=== PATIENT | female | born 1935 | race Caucasian/White ===

== ENCOUNTER 2019-09-01 01:29 | Outpatient (CLI) | payer MEDICARE, OTHER, MEDICAID | END 2019-09-01 01:30 | disposition critical access hospital (66) | LOC: EMS 01:29 | PROVIDERS: ATTEND Surgery | DX: R06.02 Shortness of breath (principal) | CPT/HCPCS: A0425; A0427 ==

== ENCOUNTER 2019-09-01 01:48 | Inpatient (IN) | payer MEDICARE, OTHER, MEDICAID ==
--- NOTE | 2019-09-01 01:38 | ED Physician Documentation ---
History of Present Illness - Stated complaint Stated Complaint: SOA - History obtained from History obtained from: Patient (the patient is a 84 yo f recently dcd from [facility] presents via ems w sob. denies cp. received suonebs by ems and feels better. reports le edema as well. remainder of hx is unknown as patient is a poor historian.) Review of Systems Constitutional: reports: Reviewed and negative Eyes: reports: Reviewed and negative Ears: reports: Reviewed and negative Nose: reports: Reviewed and negative Throat: reports: Reviewed and negative Cardiac: reports: Palpitations, Pedal edema Respiratory: reports: Dyspnea GI: reports: Reviewed and negative : reports: Reviewed and negative Skin: reports: Reviewed and negative Musculoskeletal: reports: Reviewed and negative Neurologic: reports: Reviewed and negative Psychiatric: reports: Reviewed and negative Endocrine: reports: Reviewed and negative Immunocompromised: reports: Reviewed and negative PD PAST MEDICAL HISTORY - Present Medications Home Medications: Ambulatory Orders Medication Instructions Recorded Confirmed Aspirin Chewable [[place] 81 mg PO DAILY 09/01/19 09/01/19 Aspirin] Atorvastatin Calcium 40 mg PO DAILY 09/01/19 09/01/19 Clindamycin Phosphate 1 each TP BID 09/01/19 09/01/19 Colchicine 0.6 mg PO BID PRN 09/01/19 09/01/19 Insulin Glargine,Hum.rec.anlog 15 unit SUBQ DAILY 09/01/19 09/01/19 [Basaglar Kwikpen U-100] NIFEdipine [Nifedipine ER] 60 mg PO DAILY 09/01/19 09/01/19 allopurinoL [Allopurinol] 100 mg PO DAILY 09/01/19 09/01/19 - Allergies Allergies/Adverse Reactions: Allergies Allergy/AdvReac Type Severity Reaction Status Date / Time No Known Drug Allergies Allergy Verified 09/01/19 02:20 PD ED PE NORMAL - Vitals Vital signs reviewed: Yes - General General: Alert and oriented X 3, No acute distress, Well developed/nourished - HEENT HEENT: PERRL - Neck Neck: Supple, no meningeal sign - Cardiac Cardiac: RRR, No murmur - Respiratory Respiratory: Other (Crackles at the bases bilaterally) - Abdomen Abdomen: Normal bowel sounds, Soft, Non tender, Non distended - Derm Derm: Warm and dry - Extremities Extremities: No deformity, Other (2+ pitting edema to bilateral lower extremities) - Neuro Neuro: Alert and oriented X 3 - Psych Psych: Normal mood, Normal affect Results - Vitals Vitals: Vital Signs - 24 hr 09/01/19 09/01/19 01:50 02:11 Temperature 36.4 C L Heart Rate 76 70 Respiratory 26 H 28 H Rate Blood Pressure 176/74 H 147/74 H O2 Saturation 93 92 Oxygen O2 Source Nasal cannula Oxygen Flow Rate 2 - EKG (time done) 02:00 Rate: Other (no stemi) - Labs Labs: Laboratory Tests 09/01/19 09/01/19 09/01/19 02:00 02:00 02:00 WBC 12.6 H RBC 2.32 L Hgb 7.3 L Hct 23.8 L MCV 102.6 H MCH 31.5 H MCHC 30.7 L RDW 15.3 H Plt Count 312 MPV 10.7 Neut # (Auto) 11.2 H Lymph # (Auto) 0.8 L [place] # (Auto) 0.5 Eos # (Auto) 0.0 Baso # (Auto) 0.1 Absolute Nucleated RBC 0.00 Nucleated RBC % 0.0 PT 19.4 H INR 1.8 H APTT 75.1 H Sodium 138 Potassium 4.4 Chloride 104 Carbon Dioxide 23 Anion Gap 11.0 BUN 65 H Creatinine 2.5 H Estimated GFR (MDRD) 18 L Glucose 230 H Lactic Acid Calcium 8.9 Magnesium 2.6 Total Bilirubin 0.5 AST 21 ALT 16 Alkaline Phosphatase 103 Total Creatine Kinase 66 Troponin I High Sens B-Natriuretic Peptide Total Protein 7.5 Albumin 3.9 Globulin 3.6 Albumin/Globulin Ratio 1.1 Lipase 70 H Influenza A (Rapid) Influenza B (Rapid) 09/01/19 09/01/19 09/01/19 02:00 02:00 02:00 WBC RBC Hgb Hct MCV MCH MCHC RDW Plt Count MPV Neut # (Auto) Lymph # (Auto) [place] # (Auto) Eos # (Auto) Baso # (Auto) Absolute Nucleated RBC Nucleated RBC % PT INR APTT Sodium Potassium Chloride Carbon Dioxide Anion Gap BUN Creatinine Estimated GFR (MDRD) Glucose Lactic Acid 1.2 Calcium Magnesium Total Bilirubin AST ALT Alkaline Phosphatase Total Creatine Kinase Troponin I High Sens 116.8 H* B-Natriuretic Peptide 447 H Total Protein Albumin Globulin Albumin/Globulin Ratio Lipase Influenza A (Rapid) Influenza B (Rapid) 09/01/19 02:55 WBC RBC Hgb Hct MCV MCH MCHC RDW Plt Count MPV Neut # (Auto) Lymph # (Auto) [place] # (Auto) Eos # (Auto) Baso # (Auto) Absolute Nucleated RBC Nucleated RBC % PT INR APTT Sodium Potassium Chloride Carbon Dioxide Anion Gap BUN Creatinine Estimated GFR (MDRD) Glucose Lactic Acid Calcium Magnesium Total Bilirubin AST ALT Alkaline Phosphatase Total Creatine Kinase Troponin I High Sens B-Natriuretic Peptide Total Protein Albumin Globulin Albumin/Globulin Ratio Lipase Influenza A (Rapid) Negative Influenza B (Rapid) Negative PD MEDICAL DECISION MAKING - ED course Complexity details: reviewed results, re-evaluated patient, considered differential (pulmonary edema, pna, sars, copd, chf), d/w patient, other - Critical Care Time(min): 30 Time Includes: Direct patient care, Review records, Reassess patient, Document care, Coordinate care, Medical consult, Family consult for tx dec Data interpretation: Labs, CXR, Prior EKG Procedures included in critical care time: Peripheral IV Procedures excluded from critical care time: EKG Departure - Departure Disposition: 66 [facility] DC/Xfer Clinical Impression: Pulmonary edema Qualifiers: Chronicity: acute Qualified Code(s): J81.0 - Acute pulmonary edema Condition: Stable Discharge Date/Time: 09/01/19 03:50
[2019-09-01 02:16] LABS: BASOPHILS # (AUTO) 0.1 10^3/uL (0.0-0.1); BASOPHILS % (AUTO) 0.6 %; EOSINOPHILS % (AUTO) 0.2 %; HGB - HEMOGLOBIN 7.3 g/dL (12.0-16.0); LYMPHOCYTES # (AUTO) 0.8 10^3/uL (1.5-3.5); MEAN CORPUSCULAR HEMOGLOBIN 31.5 pg (27.0-31.0); MEAN CORPUSCULAR HGB CONC 30.7 g/dL (32.0-36.0); MEAN CORPUSCULAR VOLUME 102.6 fL (81.0-99.0); MEAN PLATELET VOLUME 10.7 fL (7.9-10.8); MONOCYTES # (AUTO) 0.5 10^3/uL (0.0-1.0); MONOCYTES % (AUTO) 4.1 %; NEUTROPHILS # (AUTO) 11.2 10^3/uL (1.5-6.6); NEUTROPHILS % (AUTO) 88.7 %; PLT - PLATELET COUNT 312 10^3/uL (130-450); RED BLOOD COUNT 2.32 10^6/uL (4.20-5.40); RED CELL DISTRIBUTION WIDTH 15.3 % (12.0-15.0); WHITE BLOOD COUNT 12.6 x10^3/uL (4.8-10.8)
[2019-09-01 02:22] LABS: INR 1.8 (0.8-1.2); PT - PROTHROMBIN TIME 19.4 secs (9.9-12.6)
[2019-09-01] MEDS ORDERED: cefTRIAXone 1 GM in SODIUM CHLORIDE 0.9% MINIBAG 100 ML IV STA (02:27)
[2019-09-01 02:28] LABS: ALBUMIN 3.9 g/dL (3.2-5.5); ALBUMIN/GLOBULIN RATIO 1.1 (1.0-2.2); BILIRUBIN,TOTAL 0.5 mg/dL (0.2-1.0); CALCIUM 8.9 mg/dL (8.5-10.3); CREATININE 2.5 mg/dL (0.4-1.0); MAGNESIUM 2.6 mg/dL (1.7-2.8); TOTAL PROTEIN 7.5 g/dL (6.7-8.2)
[2019-09-01 02:29] LABS: PARTIAL THROMBOPLASTIN TIME 75.1 secs (24.9-33.3)
[2019-09-01] MEDS ORDERED: FUROSEMIDE 40 MG/4 ML VIAL IVP STA (02:34)
[2019-09-01] MEDS ORDERED: cefTRIAXone 1 GM VIAL IVP STA (02:58)
--- NOTE | 2019-09-01 03:35 | HISTORY & PHYSICAL EXAMINATION ---
Chief Complaint - Chief Complaint Chief Complaint: Dyspnea History of Present Illness - Admitted From Admitted From:: [facility] ED - History Obtained From Records Reviewed: Yes History obtained from: Patient and ED physician - History of Present Illness HPI Comment/Other: Patient is an 84-year-old female with history of systolic CHF, diabetes mellitus, hypertension, chronic kidney disease, hyperlipidemia and gout who presented to the ED with complaint of worsening dyspnea. Her symptoms started 2 days ago. She described hearing rattling in her chest. When she presented to the ED she required 2 L of oxygen via nasal cannula. She had a respiratory rate as high as 28. She denied chest pain, abdominal pain, nausea, vomiting, fever or chills. Normally at home she sleeps on a flat bed and uses 1 pillow. She would normally sleep on her side or on her belly. In the ED she was found to have a BNP of 447, troponin I of 116. Chest x-ray showed extensive pulmonary edema. However infection could not be ruled out. She had a white blood cell count of 12.6 At the time of my exam she appeared to be resting comfortably in bed. She has a 2+ lower extremity edema.She reports improvement in her respiratory status after receiving 40 mg of Lasix IV in the ED. She is currently diuresing well. As a result of the above findings and her clinical presentation she is being admitted for further work-up and treatment. 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 He is . Mother heart heart disease. She is . Daughter had an unspecified cancer. Also had heart disease. Living arrangement: At home Living Situation: With family Social History Notes: She does not smoke tobacco products. She rarely drinks alcohol. She denies any illicit drug use. - POLST Patient has POLST: No POLST Status: Full Code Meds/Allgy - Home Medications Home Medications: Ambulatory Orders Medication Instructions Recorded Confirmed Albuterol Sulfate [Albuterol 2 puffs INH Q6H PRN 09/01/19 09/01/19 Sulfate Hfa] Aspirin Chewable [[place] 81 mg PO DAILY 09/01/19 09/01/19 Aspirin] Atorvastatin Calcium 40 mg PO DAILY 09/01/19 09/01/19 Clindamycin Phosphate 1 each TP BID 09/01/19 09/01/19 Colchicine 0.6 mg PO BID PRN 09/01/19 09/01/19 Dabigatran Etexilate Mesylate 75 mg PO BID 09/01/19 09/01/19 [Pradaxa] Famotidine [Acid Controller] 20 mg PO BID 09/01/19 09/01/19 Insulin Glargine,Hum.rec.anlog 15 unit SUBQ DAILY 09/01/19 09/01/19 [Basaglar Kwikpen U-100] Levothyroxine [Synthroid] 100 mcg PO DAILY 09/01/19 09/01/19 Lisinopril [Zestril] 20 mg PO BID 09/01/19 09/01/19 NIFEdipine [Nifedipine ER] 60 mg PO DAILY 09/01/19 09/01/19 Torsemide 20 mg PO DAILY 09/01/19 09/01/19 allopurinoL [Allopurinol] 100 mg PO DAILY 09/01/19 09/01/19 amLODIPine [Norvasc] 5 mg PO DAILY 09/01/19 09/01/19 metFORMIN [Glucophage] 500 mg PO BID 09/01/19 09/01/19 - Allergies Allergies/Adverse Reactions: Allergies Allergy/AdvReac Type Severity Reaction Status Date / Time No Known Drug Allergies Allergy Verified 09/01/19 02:20 Review of Systems - Constitutional Constitutional: denies: Fatigue, Fever, Chills - Eyes Eyes: denies: Pain, Dipolpia - Ears, Nose & Throat Ears, Nose & Throat: denies: Ear pain, Tinnitus - Cardiovascular Cariovascular: reports: Edema, Exertional dyspnea. denies: Irregular heart rate, Palpitations, Chest pain - Respiratory Respiratory: reports: SOB at rest, SOB with exertion - Gastrointestinal Gastrointestinal: denies: Abdominal pain, Abdominal distention, Constipation, Diarrhea, Nausea, Vomiting - Genitourinary Genitourinary: denies: Dysuria, Frequency, Urgency, Hematuria - Musculoskeletal Musculoskeletal: denies: Muscle pain, Back pain, Muscle aches - Integumentary Integumentary: reports: Dryness. denies: Rash, Pruritis - Neurological Neurological: denies: General weakness, Focal weakness, Headache - Psychiatric Psychiatric: denies: Depression, Anxiety - Endocrine Endocrine: denies: Polyuria, Polydypsia - Hematologic/Lymphatic Hematologic/Lymphatic: denies: Anemia, Bruising, Petechiae Prior Level of Functionality: Patient is normally independent of activities of daily living Exam - Vital Signs Vital Signs: Vital Signs x48h Temp Pulse Resp BP Pulse Ox 09/01/19 02:11 70 28 H 147/74 H 92 09/01/19 01:50 36.4 C L 76 26 H 176/74 H 93 - Physical Exam General Appearance: positive: Alert, Moderate distress (respiratory) Eyes Bilateral: positive: PERRL, EOMI ENT: positive: No signs of dehydration Neck: positive: No JVD, Trachea midline Respiratory: positive: Chest non-tender, Rhonchi, Other (dyspneic) Cardiovascular: positive: Regular rate & rhythm, Gallop/S3. negative: Irregularly irregular, Tachycardia Abdomen: positive: Non-tender, No organomegaly, Nml bowel sounds, No distention. negative: Guarding, Rebound Back: positive: Nml inspection Skin: positive: Color nml, No rash, Warm, Dry Extremities: positive: Non-tender, Pedal edema Neurologic/Psychiatric: positive: Oriented x3, Mood/affect nml Conclusion/Plan - Problem List (1) Pulmonary edema Conclusion/Plan: Suspect secondary to exacerbation of congestive heart failure. Patient has Hx of systolic Heart Failure BNP was 447. We will work-up further with a 2D echo. Patient was given Lasix 40 mg IV x1 in the ED. We will continue Lasix 20 mg IV twice daily. Daily weights. On 2L Oxygen via nasal canula Toprol XL 25mg po daily ordered Qualifiers: Chronicity: acute Qualified Code(s): J81.0 - Acute pulmonary edema (2) Elevated troponin Conclusion/Plan: Possibly secondary to NSTEMI. We will trend troponin. If second Troponin results doubling. Will consider placing patient on heparin drip. 2D echo pending. Patient on baby aspirin daily. (3) Ventricular bigeminy Conclusion/Plan: Likely related to her heart failure and NSTEMI. Ventricular bigeminy was also noted at the time of patient's echocardiogram on December 02, 2017 Toprol XL 25 mg p.o. daily ordered. Patient is on aspirin daily Lasix 20 mg IV twice daily ordered. Patient is on atorvastatin. (4) Acute respiratory failure Conclusion/Plan: Likely multifactorial due to CHF and/or NSTEMI. Cannot rule out infectious cause COVID-19 and Influenza pending Patient in isolation while awaiting results. Patient given Rocephin 1g IV in the ED. Will continue daily. Will also add azithromycin 500mg IV daily (5) Acute kidney injury Conclusion/Plan: Acute on chronic. Will attempt to get previous medical records from [facility]. Patient is new to [facility]. Possibly multifactorial. Acute presentation possibly due to heart failure, medication or infection. Chronically due to hypertension and diabetes. Patient being diuresed with Lasix 20 mg IV bid We will hold allopurinol and colchicine Urine analysis pending (6) Hyperlipidemia Conclusion/Plan: On atorvastatin 40 mg every afternoon. Will continue. We will also check lipid panel. (7) Diabetes mellitus Conclusion/Plan: Patient is on Lantus 15 units subcu daily. Will continue. Sliding scale insulin ordered. Accu-Cheks q. before meals and at bedtime. We will check hemoglobin A1c. Qualifiers: Diabetes mellitus type: type 2 (8) Hypertension Conclusion/Plan: Patient takes 60 nifedipine ER daily. Will order Toprol XL 25 mg daily (9) Gout Conclusion/Plan: Not in a flare. We will hold allopurinol and colchicine for now due to renal function. - Lab Results Fish Bones: 09/01/19 21:30 09/01/19 02:00 Core Measures - Anticipated LOS I expect patient to be DC'd or transferred within 96 hours.: Yes - DVT/VTE - Prophylaxis VTE/DVT Device ordered at admit?: Yes VTE/DVT Prophylaxis med ordered at admit?: Yes
[2019-09-01] MEDS ORDERED: FUROSEMIDE 20 MG/2 ML VIAL IVP SCH (06:00)
[2019-09-01 06:21] LABS: CHOL/HDL RATIO 2.1 (<4.4); CHOLESTEROL 92 mg/dL; HDL CHOLESTEROL 43 mg/dL; LDL CHOLESTEROL,CALCULATED 36 mg/dL; LDL/HDL RATIO 0.8 (<4.4); VLDL CHOLESTEROL 13 mg/dL
[2019-09-01] MEDS: PANTOPRAZOLE 40 MG TABLET PO SCH (06:31)
[2019-09-01] MEDS: SODIUM CHLORIDE FLUSH 0.9% 10 ML SYRINGE IVP SCH ×2 (06:31→19:30)
[2019-09-01 06:32] LABS: HB2 TOTAL 7.7 g/dL; HEMOGLOBIN A1C 0.31 g/dL; HEMOGLOBIN A1C % 5.8 % (4.6-6.2)
[2019-09-01] MEDS ORDERED: HEPARIN 25000UNITS/500ML (D5W) 25,000 UNIT/500 ML BAG IV SCH (07:30)
[2019-09-01 08:14] LABS: BILIRUBIN,URINE NEGATIVE (NEGATIVE); GLUCOSE, URINE (UA) NEGATIVE (NEGATIVE); KETONES,URINE (UA) NEGATIVE (NEGATIVE); LEUKOCYTE ESTERASE, URINE NEGATIVE (NEGATIVE); NITRITE,URINE POSITIVE (NEGATIVE); OCCULT BLOOD,URINE NEGATIVE (NEGATIVE); PH,URINE 5.5 PH (5.0-7.5); PROTEIN,URINE 30 mg/dL (NEGATIVE); UROBILINOGEN,URINE 0.2 (NORMAL) E.U./dL (NORMAL)
[2019-09-01 08:18] LABS: CLARITY,URINE CLEAR (CLEAR)
[2019-09-01 08:33] LABS: BACTERIA,URINE Few /HPF (None Seen); CASTS, URINE 0-2 Hyaline Casts /LPF; RBC,URINE None Seen /HPF (0-5); SQUAMOUS EPITHELIAL CELL,UR FEW Squamous (<= Few); WBC CLUMPS,URINE PRESENT
[2019-09-01] MEDS ORDERED: HEPARIN 5,000 UNIT/ML VIAL SUBQ SCH (09:00)
[2019-09-01] MEDS ORDERED: METOPROLOL SUCCINATE 25 MG TABLET PO SCH (09:00)
--- NOTE | 2019-09-01 09:01 | XRAY Report ---
PROCEDURE: Chest 1 View X-Ray INDICATIONS: sob TECHNIQUE: One view of the chest was acquired. COMPARISON: None. FINDINGS: Surgical changes and devices: None. Lungs and pleura: No pleural effusions or pneumothorax. Lungs are prominently abnormal with a patch y generalized pattern of moderately severe alveolar infiltration, in a pattern that could represent a manifestation of atypical pneumonia including viral pneumonia. Mediastinum: Mediastinal contours appear normal. Heart size is normal. Bones and chest wall: No suspicious bony lesions except at the proximal humerus on the left were 2 r ounded radiodensities are present the largest of which is at the humeral neck, and which measures up to 8 mm in maximal dimension.. Overlying soft tissues appear unremarkable except for an 8 mm ovoid r adiodensity in the soft tissues above the junction of the middle and distal thirds of the left clavic le.. IMPRESSION: Patchy bilateral alveolar infiltration pattern considered most likely a manifestation of infection in cluding potentially atypical viral pneumonia. Please correlate clinically. There are 2 separate radio densities seen focally within the proximal left humerus and one above the left clavicle in the soft t issues. Cutaneous superimposition, versus possible manifestation of neoplasm. Reviewed by: Axel Salamanca MD on 09/01/2019 9:00 AM PDT Approved by: Axel Salamanca MD on 09/01/2019 9:00 AM PDT Station ID: [id number]
[2019-09-01] MEDS ORDERED: SODIUM CHLORIDE 0.9% 1,000 ML IV ONE (09:16)
[2019-09-01] MEDS: cefTRIAXone 1 GM in SODIUM CHLORIDE 0.9% MINIBAG 100 ML IV SCH (09:16)
[2019-09-01] MEDS: INSULIN ASPART 300 UNIT/3 ML PEN SUBQ SCH ×4 (09:23→22:08)
[2019-09-01] MEDS: METOPROLOL SUCCINATE 25 MG TABLET PO SCH (09:27)
[2019-09-01 09:49] LABS: MEAN CORPUSCULAR HEMOGLOBIN 32.6 pg (27.0-31.0); MEAN CORPUSCULAR HGB CONC 31.4 g/dL (32.0-36.0); MEAN CORPUSCULAR VOLUME 103.7 fL (81.0-99.0); MEAN PLATELET VOLUME 10.8 fL (7.9-10.8); RED BLOOD COUNT 2.15 10^6/uL (4.20-5.40); RED CELL DISTRIBUTION WIDTH 15.3 % (12.0-15.0); WHITE BLOOD COUNT 10.7 x10^3/uL (4.8-10.8)
[2019-09-01] MEDS: AZITHROMYCIN INJ 500 MG in SODIUM CHLORIDE 0.9% 250 ML IV SCH (10:03)
[2019-09-01] MEDS ORDERED: ASPIRIN CHEW 81 MG TABLET PO SCH ×2 (11:00→11:30)
[2019-09-01] MEDS ORDERED: ASPIRIN 325 MG TABLET PO SCH (11:00)
[2019-09-01] MEDS: allopurinoL 100 MG TABLET PO SCH (11:37)
[2019-09-01] MEDS: NITROGLYCERIN 2% PASTE TOP SCH ×2 (11:37→19:26)
--- NOTE | 2019-09-01 11:52 | PHARMACY PROGRESS NOTE ---
- Best Possible Medication History Admit Date and Time: 09/01/19 0305 Processed by: Pharmacy Medication History completed: Yes Patient Interview: Pt unable to participate Secondary Source(s): Pharmacy records (waiting to rule out possible COVID; amrik singer unable to be interviewed), Insurance records As the person ultimately responsible for medication therapy, providers are able to order a medication from an existing home medication list in [facility] via the "Reconcile Routine" prior to Confirmation of that medication by application support administrator. Such practice is discouraged except when the physician, in their clinical judgment, deems that a medical need exists for a medication without regard to previous use.
[2019-09-01] MEDS ORDERED: COLCHICINE 0.6 MG TABLET PO PRN (12:00)
--- NOTE | 2019-09-01 13:48 | PROCEDURE REPORT ---
Hospitalist Procedure Note - Procedure Note Procedure Note: PICC line requested by the hospitalist for this patient for poor IV access. 5 senegalese double lumen picc used. Right arm cleaned and drapped while maintaining sterility. US guidance used and Basilic vein identified in the right arm. Lidocain 1% 2ml to skin and subcutaneous tissue.RN in the room to assist. Time out and checklist completed. Could not advance the picc catheter beyond axillary vein. Able to draw blood from both lumens. Hospitalist ok with tip in the aillary vein. PICC catheter was actually trimmed at 40 cm. The patient tolerated the procedure well. X ray obtained. Will wait for radiology confirmation before using the line.
--- NOTE | 2019-09-01 14:47 | XRAY Report ---
PROCEDURE: Chest for Line Placement INDICATIONS: PICC PLACEMENT TECHNIQUE: One view of the chest was acquired. COMPARISON: FINDINGS: Surgical changes and devices: None. Lungs and pleura: No pleural effusions or pneumothorax. Lungs are worsening, with a increased densi ty of alveolar infiltration when compared to the study from earlier today.. Mediastinum: Mediastinal contours appear normal. Heart size is mildly enlarged. Bones and chest wall: No suspicious bony lesions. Overlying soft tissues appear unremarkable. IMPRESSION: Mild cardiomegaly, worsening alveolar infiltration in a patchy pattern, considered more likely to rep resent pneumonia than with cardiogenic pulmonary edema which does remain a potential etiology of this appearance given the cardiomegaly present. Reviewed by: Axel Salamanca MD on 09/01/2019 2:45 PM PDT Approved by: Axel Salamanca MD on 09/01/2019 2:45 PM PDT Station ID: [id number]
[2019-09-01] MEDS: FUROSEMIDE 40 MG/4 ML VIAL IVP SCH (15:00)
--- NOTE | 2019-09-01 15:29 | PROVIDER PROGRESS NOTE ---
Hospitalist Cross-cover Note - Cross-Cover Note Cross-Cover Note: Pt more SOB, required increase of supplemental O2 to 5L per n.c. today. She had a cough and her sputum had radames blood. Troponins continue to rise all day: 100>> 300>> 500>> 800's. COVID result still pending. Significant finding on exam: HR and BP are stable, she has crackles at bases Dx: 1) Pulmonary edema with acute respiratory failure 2) Acute NSTEMI 3) Hemoptysis 4) Community acquired pneumonia, possibly 5) Chronic Afib, on Pradaxa at renal doses 6) Ventricular bigeminy on telemetry 7) Hx of systolic heart failure (last EF was 45-50% done at [facility] 1 mo ago). 8) CKD, stage 4 9) DM 10) Anemia Plan: Continue telemetry Chew 4 baby aspirin now Continue daily ASA and statin Continue new Metoprolol Succinate daily Start NTPaste Continue iv bid Lasix, at dose for a CKD patient Monitor Mg and K Do not start Spirinolactone since the patient had a recent admission at [facility] for hyperkalemia Do not start Heparin drip or continue Pradaxa due to hemoptysis with worsening anemia Follow H/H q12h Follow troponin until it peaks, to estimate NH size Await Echo report Hold OLEG due to CKD and need for other meds that are decreasing her BP (Metoprolol, NTPaste and iv Lasix) Continue empiric iv antibiotics Obtain sputum for culture Increase severity from Stable to Guarded Will need to discuss possible cor angio and transfer Critical Care Time spent (adjusting meds, new lab orders, reviewing [facility] records, discussion with RN): 60 min
--- NOTE | 2019-09-01 16:40 | CONSULTATION NOTE ---
Consultation Report: ater reading the radiology note, there was no mention of the picc line tip being in the mid axillary vein. Spoke with Dr Salamanca about it, he realized that he missed the picc. He will add an addendum to his note.
[2019-09-01] MEDS ORDERED: INSULIN GLARGINE 300 UNIT/3 ML PEN SUBQ SCH (21:00)
[2019-09-01 21:38] LABS: MEAN CORPUSCULAR HEMOGLOBIN 31.8 pg (27.0-31.0); MEAN CORPUSCULAR HGB CONC 30.6 g/dL (32.0-36.0); MEAN PLATELET VOLUME 10.8 fL (7.9-10.8); RED BLOOD COUNT 1.98 10^6/uL (4.20-5.40); RED CELL DISTRIBUTION WIDTH 15.1 % (12.0-15.0); WHITE BLOOD COUNT 9.2 x10^3/uL (4.8-10.8)
[2019-09-01 21:42] LABS: HGB - HEMOGLOBIN 6.3 g/dL (12.0-16.0)
[2019-09-01] MEDS: guaiFENesin 600 MG TABLET PO SCH (22:08)
[2019-09-01] MEDS: ATORVASTATIN 40 MG TABLET PO SCH (22:08)
[2019-09-02] MEDS ORDERED: FUROSEMIDE 20 MG/2 ML VIAL IVP PRN (00:05)
[2019-09-02] MEDS ORDERED: SODIUM CHLORIDE 0.9% 500 ML IV ONE (00:13)
[2019-09-02] MEDS: SODIUM CHLORIDE FLUSH 0.9% 10 ML SYRINGE IVP SCH ×3 (00:15→17:32)
[2019-09-02] MEDS: NITROGLYCERIN 2% PASTE TOP SCH ×3 (03:28→19:52)
[2019-09-02] MEDS: PANTOPRAZOLE 40 MG TABLET PO SCH (06:21)
[2019-09-02] MEDS: FUROSEMIDE 40 MG/4 ML VIAL IVP SCH ×2 (06:21→13:51)
[2019-09-02] MEDS: cefTRIAXone 1 GM in SODIUM CHLORIDE 0.9% MINIBAG 100 ML IV SCH (08:43)
[2019-09-02] MEDS: guaiFENesin 600 MG TABLET PO SCH ×2 (08:48→21:23)
[2019-09-02] MEDS: METOPROLOL SUCCINATE 25 MG TABLET PO SCH (08:49)
[2019-09-02] MEDS: ASPIRIN CHEW 81 MG TABLET PO SCH (08:50)
[2019-09-02] MEDS: INSULIN ASPART 300 UNIT/3 ML PEN SUBQ SCH ×4 (08:50→21:25)
[2019-09-02] MEDS: allopurinoL 100 MG TABLET PO SCH (08:51)
[2019-09-02] MEDS ORDERED: INSULIN GLARGINE 300 UNIT/3 ML PEN SUBQ SCH (09:00)
[2019-09-02 09:15] LABS: HGB - HEMOGLOBIN 9.5 g/dL (12.0-16.0); MEAN CORPUSCULAR HEMOGLOBIN 32.8 pg (27.0-31.0); MEAN CORPUSCULAR HGB CONC 33.2 g/dL (32.0-36.0); MEAN CORPUSCULAR VOLUME 98.6 fL (81.0-99.0); MEAN PLATELET VOLUME 10.9 fL (7.9-10.8); RED BLOOD COUNT 2.9 10^6/uL (4.20-5.40)
[2019-09-02] MEDS: AZITHROMYCIN INJ 500 MG in SODIUM CHLORIDE 0.9% 250 ML IV SCH (09:22)
[2019-09-02 09:26] LABS: CALCIUM 9.1 mg/dL (8.5-10.3); CREATININE 2.1 mg/dL (0.4-1.0)
--- NOTE | 2019-09-02 11:08 | PROVIDER PROGRESS NOTE ---
Assessment/Plan - Problem List (1) Pulmonary edema Qualifiers: Chronicity: acute Qualified Code(s): J81.0 - Acute pulmonary edema Assessment/Plan: BNP went up from 440's at admission yesterday to 1900's today, has a delay from her clinical status however. The etiology is the acute TN. She is diuresising well and slowly improving, still needs supplemental oxygen though. Continue Lasix iv bid, at renal doses. Follow I's and O's, daily weights and BMP daily. We started to discuss a cor angio and she would need to be not dyspneic when supine. I presume she will need another 48 hours to achieve that. (2) Acute respiratory failure with hypoxia Assessment/Plan: Her O2 needs went up yesterday but have decreased slightly today. She is less short of breath. She is still orthopneic and has a wet cough. Her white blood count has not increased and there is no fever. The sputum culture shows only oral [place]. We will stop the empiric IV antibiotics. Continue supplemental oxygen, diuresis, management of the underlying cardiac condition. (3) Acute non-ST elevation myocardial infarction (NSTEMI) Assessment/Plan: The serum troponins have been followed for over a day now, her troponin has peaked at 1600. Her Pradaxa had to be stopped and iv heparin drip never started yesterday because of hemoptysis yesterday. She has had no more hemoptysis today, thus we could begin heparin, if there is no guaic pos stool (concern for this due to marked anemia, to the point of needing blood transfusion last night). She is on NTPaste, Toprol, aspirin and statin. We started to discuss a cor angio today and she would need to be not dyspneic when supine. I presume she will need another 48 hours to achieve that. She has requested that I talk to her daughter will need to about the coronary angiogram plan. (4) Chronic systolic heart failure Assessment/Plan: Records from [facility] were obtained yesterday and reviewed. She has a history of a mild cardiomyopathy with EF of 45% in the past which improved to 55% over the last few months. When she was admitted there 1 month ago for hyperkalemia and UTI, an Echo was done and showed an EF of 50 to 55% (improvement). Echo was done here yesterday for the acute TN and again shows EF of 40 to 45% with regional wall motion abnormalities: Apical lateral hypokinesis and mid inferolateral hypokinesis. Today she tells me she cannot remember when she was first told about the weak heart. She cannot remember ever having stress test or coronary angiogram. I spoke to Janene, the oldest daughter and Mariel, the youngest daughter, at [facility] and learned that there was an old TN and at least 2 prior angios. Today, I called the office of her PCP, Dr. Mingo Alexandra and his partner, QUINCY Dean, read from the chart and there was a history of an TN in 1977 and a stroke [id number]. There were no old reports from [place] or [facility] which QUINCY Dean will obtain them and then forward to us by fax. Continue beta-omid. Continue iv Lasix. The creat actually improved with diuresis, suggesting that she had Cardio-Renal syndrome, with an elevated venous pressure in the kidney. No Spironolactone was started because of the recent hyperkalemia 1 month ago and given the underlying CKD. OLEG inhibitor is on hold because of the CKD, and also because of need for NTPaste, iv Lasix and Metoprolol, which decreased her BP. (5) Hemoptysis Assessment/Plan: She had hemoptysis yesterday, was on (an appropriate dose) of Pradaxa for her kidney function Hemoptysis resolved, none today. Later in the day, the patient told her youngest daughter Mariel, at bedside, that she has hemoptysis every morning when she awakens for many weeks. Continue to hold Pradaxa, heparin but continued daily aspirin. (6) Anemia Assessment/Plan: Presumably she had anemia of chronic disease from her significant CKD. Despite diuresis, her hemoglobin has dropped to 6.3 last night and she needed 2 units PRBCs transfused overnight. Guaiac of stool was ordered, is still pending. If the stool guaiac is positive, she cannot undergo a coronary angiogram until there is a source of GI bleeding found, since Heparin will be used and she would need Plavix plus ASA if she gets a stent. There is also this new information about hemoptysis chronically every morning for the last several weeks. Will begin oral iron replacement. Check B12 and folate levels also and replace if low. (7) CKD stage 4 due to type 2 diabetes mellitus Assessment/Plan: Presented with creatinine of 2.5 yesterday, it is 2.2 today. Continue iv Lasix. The creat actually improved with diuresis, suggesting that she had Cardio-Renal syndrome, with an elevated venous pressure in the kidney. No Spironolactone was started because of the recent hyperkalemia 1 month ago and given the underlying CKD. OLEG inhibitor is on hold because of the CKD, and also because of need for NTPaste, iv Lasix and Metoprolol, which decreased her BP. (8) Chronic a-fib Assessment/Plan: Pradaxa at renal doses at presentation. Continue with the new beta-omid for both the TN and heart rate control and A. fib. Her Pradaxa has been stopped because of hemoptysis. Continue with daily aspirin which is also needed for her acute TN. (9) Diabetes mellitus Qualifiers: Diabetes mellitus type: type 2 Assessment/Plan: Her glucoses are overall low, We will decrease her insulin dose. Continue carb controlled diet, fingerstick checks and sliding scale insulin. (10) Hypertension Assessment/Plan: Current new cardiac medications are controlling her blood pressure at this time. (11) Gout Assessment/Plan: Continue her low dose Allopurinol - Current Meds Current Meds: Current Medications Generic Name Dose Route Start Last Admin Trade Name Geovanniq PRN Reason Stop Dose Admin Allopurinol 100 mg 09/01/19 11:00 09/02/19 08:51 Zyloprim PO 100 mg DAILY ELLEN Administration Aspirin 81 mg 09/02/19 09:00 09/02/19 08:50 [place] Aspirin PO 81 mg DAILY ELLEN Administration Atorvastatin Calcium 40 mg 09/01/19 21:00 09/01/19 22:08 Lipitor PO 40 mg QPM ELLEN Administration Furosemide 40 mg 09/01/19 14:00 09/02/19 06:21 Lasix Inj 40 Mg Vial IVP 40 mg BIDDIURETIC ELLEN Administration Guaifenesin 600 mg 09/01/19 21:00 09/02/19 08:48 Mucinex PO 600 mg BID ELLEN Administration Ceftriaxone Sodium 1 gm/ 100 mls @ 200 mls/hr 09/01/19 09:00 09/02/19 09:22 Sodium Chloride IV 09/05/19 09:29 Infused DAILY ELLEN Infusion Azithromycin 500 mg/ Sodium 250 mls @ 250 mls/hr 09/01/19 09:00 09/02/19 11:02 Chloride IV 09/03/19 09:59 Infused DAILY ELLEN Infusion Insulin Aspart 1 - 5 unit 09/01/19 08:00 09/02/19 08:50 Novolog SUBQ 1 unit 0800,1200,1700,2100 ELLEN Administration Protocol Metoprolol Succinate 25 mg 09/01/19 09:00 09/02/19 08:49 Toprol Xl PO 25 mg DAILY ELLEN Administration Nitroglycerin 0.5 inch 09/01/19 11:00 09/02/19 03:28 Nitro-Bid (Pkt) TOP 0.5 inch Q8H ELLEN Administration Pantoprazole Sodium 40 mg 09/01/19 07:00 09/02/19 06:21 Protonix PO 40 mg QDAC ELLEN Administration Sodium Chloride 10 ml 09/01/19 09:00 09/02/19 08:57 Normal Saline Flush 0.9% IVP 10 ml 0100,0900,1700 ELLEN Administration - Lab Result Fish Bone Diagrams: 09/02/19 09:04 09/02/19 09:04 - Additional Planning My Orders: My Active Orders 09/01/19 10:50 Pichardo Insertion [RC] QSHIFT 09/01/19 10:57 Daily Weight [RC] 0600 09/01/19 11:00 Nitroglycerin 2% Paste (Pkt) [Nitro-Bid (Pkt)] 0.5 inch TOP Q8H allopurinoL [Zyloprim] 100 mg PO DAILY 09/01/19 12:00 Colchicine [Colcrys] 0.6 mg PO BID PRN 09/01/19 14:00 FUROSEMIDE INJ 40mg VIAL [LASIX INJ 40 mg VIAL] 40 mg IVP BIDDIURETIC 09/01/19 21:00 Atorvastatin [Lipitor] 40 mg PO QPM guaiFENesin [Mucinex] 600 mg PO BID 09/02/19 09:00 Aspirin Chewable [[place] Aspirin] 81 mg PO DAILY 09/02/19 09:04 A1C [CHEM] Routine 09/03/19 09:00 Insulin Glargine [Lantus Solostar] 8 unit SUBQ DAILY Subjective - Subjective Patient Reports: Shortness of Breath (SOB is better than at admission but is still orthopneic, dyspneic while we were talking and still hears "rattling" and has a cough. No CP.) Objective Vital Signs: Vital Signs - 24 hr 09/01/19 09/01/19 09/01/19 11:29 11:53 14:28 Temperature 36.2 C L Heart Rate Heart Rate [ 55 L Brachial] Respiratory 18 Rate Blood Pressure Blood Pressure [Left Brachial artery] Blood Pressure 135/65 H [Right Brachial artery] O2 Saturation 92 92 92 09/01/19 09/01/19 09/01/19 15:01 16:30 20:41 Temperature 36.4 C L 36.6 C Heart Rate Heart Rate [ 61 63 Brachial] Respiratory 24 24 Rate Blood Pressure Blood Pressure 167/79 H 102/76 [Left Brachial artery] Blood Pressure 146/104 H [Right Brachial artery] O2 Saturation 94 92 09/01/19 09/02/19 09/02/19 23:48 00:20 00:30 Temperature 36.2 C L 36.9 C 36.9 C Heart Rate 74 62 Heart Rate [ 62 Brachial] Respiratory 22 24 20 Rate Blood Pressure 157/48 H 169/66 H Blood Pressure 146/51 H [Left Brachial artery] Blood Pressure [Right Brachial artery] O2 Saturation 94 09/02/19 09/02/19 09/02/19 00:40 03:00 03:32 Temperature 37 C 37.1 C Heart Rate 61 62 Heart Rate [ Brachial] Respiratory 20 20 20 Rate Blood Pressure 169/70 H 159/63 H Blood Pressure [Left Brachial artery] Blood Pressure [Right Brachial artery] O2 Saturation 95 09/02/19 09/02/19 09/02/19 04:08 04:20 04:30 Temperature 37 C 36.9 C 37.1 C Heart Rate 60 67 64 Heart Rate [ Brachial] Respiratory 20 22 20 Rate Blood Pressure 163/69 H 166/59 H 169/52 H Blood Pressure [Left Brachial artery] Blood Pressure [Right Brachial artery] O2 Saturation 09/02/19 09/02/19 09/02/19 04:56 06:00 08:19 Temperature 37.1 C 36.9 C 36.6 C Heart Rate 64 Heart Rate [ 62 56 L Brachial] Respiratory 20 24 18 Rate Blood Pressure Blood Pressure 152/48 H 157/55 H [Left Brachial artery] Blood Pressure [Right Brachial artery] O2 Saturation 95 93 95 09/02/19 08:40 Temperature Heart Rate Heart Rate [ 74 Brachial] Respiratory Rate Blood Pressure Blood Pressure [Left Brachial artery] Blood Pressure [Right Brachial artery] O2 Saturation Oxygen O2 Source Oxymask Oxygen Flow Rate 2 I&O (Last 24 Hrs): Intake and Output Totals x24h 08/31/19 09/01/19 09/02/19 23:59 23:59 23:59 Intake Total 1872 760 Output Total 925 800 Balance 947 -40 General: Alert, Oriented x3 HEENT: Mucous membr. moist/pink Neck: Supple, No JVD Neuro: Alert, Non Focal, Other (Poor memory: the pt forgets what we spoke about just 5 minutes previously and the daughter Mariel witnessed this at bedside.) Cardiovascular: Regular rate, No murmurs Respiratory: Rales (Bilateral at bases 1/2 way up) Abdomen: Soft Extremities: No edema, No tenderness/swelling - Results Results: Laboratory Results WBC 11.0 x10^3/uL (4.8-10.8) H 09/02/19 09:04 RBC 2.90 10^6/uL (4.20-5.40) L 09/02/19 09:04 Hgb 9.5 g/dL (12.0-16.0) L 09/02/19 09:04 Hct 28.6 % (37.0-47.0) L 09/02/19 09:04 MCV 98.6 fL (81.0-99.0) 09/02/19 09:04 MCH 32.8 pg (27.0-31.0) H 09/02/19 09:04 MCHC 33.2 g/dL (32.0-36.0) 09/02/19 09:04 RDW 16.0 % (12.0-15.0) H 09/02/19 09:04 Plt Count 264 10^3/uL (130-450) 09/02/19 09:04 MPV 10.9 fL (7.9-10.8) H 09/02/19 09:04 Neut # (Auto) 11.2 10^3/uL (1.5-6.6) H 09/01/19 02:00 Lymph # (Auto) 0.8 10^3/uL (1.5-3.5) L 09/01/19 02:00 [place] # (Auto) 0.5 10^3/uL (0.0-1.0) 09/01/19 02:00 Eos # (Auto) 0.0 10^3/uL (0.0-0.7) 09/01/19 02:00 Baso # (Auto) 0.1 10^3/uL (0.0-0.1) 09/01/19 02:00 Absolute Nucleated RBC 0.00 x10^3/uL 09/01/19 02:00 Nucleated RBC % 0.0 /100WBC 09/01/19 02:00 PT 19.4 secs (9.9-12.6) H 09/01/19 02:00 INR 1.8 (0.8-1.2) H 09/01/19 02:00 APTT 75.1 secs (24.9-33.3) H 09/01/19 02:00 Anti-Xa Level 0.1 U/mL (-0.7) 09/01/19 14:16 Sodium 140 mmol/L (135-145) 09/02/19 09:04 Potassium 4.1 mmol/L (3.5-5.0) 09/02/19 09:04 Chloride 100 mmol/L (101-111) L 09/02/19 09:04 Carbon Dioxide 25 mmol/L (21-32) 09/02/19 09:04 Anion Gap 15.0 (6-13) H 09/02/19 09:04 BUN 66 mg/dL (6-20) H 09/02/19 09:04 Creatinine 2.1 mg/dL (0.4-1.0) H 09/02/19 09:04 Estimated GFR (MDRD) 22 (>89) L 09/02/19 09:04 Glucose 179 mg/dL (70-100) H 09/02/19 09:04 Glycated Hemoglobin 5.8 % (4.6-6.2) 09/01/19 05:40 Estim Average Glucose 120 (70-100) H 09/01/19 05:40 Lactic Acid 1.2 mmol/L (0.5-2.2) 09/01/19 02:00 Uric Acid 7.4 mg/dL (2.6-7.2) H 09/01/19 09:35 Calcium 9.1 mg/dL (8.5-10.3) 09/02/19 09:04 Magnesium 2.6 mg/dL (1.7-2.8) 09/01/19 02:00 Total Bilirubin 0.5 mg/dL (0.2-1.0) 09/01/19 02:00 AST 21 IU/L (10-42) 09/01/19 02:00 ALT 16 IU/L (10-60) 09/01/19 02:00 Alkaline Phosphatase 103 IU/L (42-121) 09/01/19 02:00 Total Creatine Kinase 66 IU/L (22-269) 09/01/19 02:00 Troponin I High Sens 1055.4 ng/L (2.3-14.8) H* 09/02/19 09:04 B-Natriuretic Peptide 1973 pg/mL (5-100) H 09/02/19 09:04 Total Protein 7.5 g/dL (6.7-8.2) 09/01/19 02:00 Albumin 3.9 g/dL (3.2-5.5) 09/01/19 02:00 Globulin 3.6 g/dL (2.1-4.2) 09/01/19 02:00 Albumin/Globulin Ratio 1.1 (1.0-2.2) 09/01/19 02:00 Triglycerides 65 mg/dL (-149) 09/01/19 05:40 Cholesterol 92 mg/dL (-199) 09/01/19 05:40 LDL Cholesterol, Calc 36 mg/dL (-129) 09/01/19 05:40 VLDL Cholesterol 13 mg/dL 09/01/19 05:40 HDL Cholesterol 43 mg/dL (60-) L 09/01/19 05:40 LDL/HDL Ratio 0.8 (<4.4) 09/01/19 05:40 Cholesterol/HDL Ratio 2.1 (<4.4) 09/01/19 05:40 Lipase 70 U/L (22-51) H 09/01/19 02:00 Urine Color YELLOW 09/01/19 07:54 Urine Clarity CLEAR (CLEAR) 09/01/19 07:54 Urine pH 5.5 PH (5.0-7.5) 09/01/19 07:54 Ur Specific [place] 1.015 (1.002-1.030) 09/01/19 07:54 Urine Protein 30 mg/dL (NEGATIVE) H 09/01/19 07:54 Urine Glucose (UA) NEGATIVE mg/dL (NEGATIVE) 09/01/19 07:54 Urine Ketones NEGATIVE mg/dL (NEGATIVE) 09/01/19 07:54 Urine Occult Blood NEGATIVE (NEGATIVE) 09/01/19 07:54 Urine Nitrite POSITIVE (NEGATIVE) H 09/01/19 07:54 Urine Bilirubin NEGATIVE (NEGATIVE) 09/01/19 07:54 Urine Urobilinogen 0.2 (NORMAL) E.U./dL (NORMAL) 09/01/19 07:54 Ur Leukocyte Esterase NEGATIVE (NEGATIVE) 09/01/19 07:54 Urine RBC None Seen /HPF (0-5) 09/01/19 07:54 Urine WBC 6-10 /HPF (0-5) H 09/01/19 07:54 Urine WBC Clumps PRESENT 09/01/19 07:54 Ur Squamous Epith Cells FEW Squamous (<= Few) 09/01/19 07:54 Urine Bacteria Few /HPF (None Seen) 09/01/19 07:54 Urine Casts 0-2 Hyaline Casts /LPF 09/01/19 07:54 Ur Microscopic Review INDICATED 09/01/19 07:54 Urine Culture Comments INDICATED 09/01/19 07:54 Influenza A (Rapid) Negative (Negative) 09/01/19 02:55 Influenza B (Rapid) Negative (Negative) 09/01/19 02:55 Blood Type A POSITIVE 09/01/19 22:20 Blood Type Recheck A POSITIVE 09/01/19 21:30 Antibody Screen NEGATIVE 09/01/19 22:20 Crossmatch IS Only See Detail 09/01/19 22:20
[2019-09-02 11:29] LABS: HB2 TOTAL 9.8 g/dL; HEMOGLOBIN A1C 0.41 g/dL
[2019-09-02] MEDS: SODIUM CHLORIDE FLUSH 0.9% 10 ML SYRINGE IVP PRN (13:52)
--- NOTE | 2019-09-02 16:51 | ADVANCE CARE PLANNING NOTE ---
Advance Care Planning - Planning Encounter Date: 09/02/19 Time: 15:25 Purpose: To confirm the patient's wishes regarding CODE STATUS, because she has had 2 discussions with the admitting doctor stating that she wants to be a full code, but this morning she told me she wants to be DNR and told her oldest daughter Kiara to "call all the other 11 children and tell them she is dying soon." To also delineate a care plan, after updating the patient and the 2 daughters about the patient's current medical condition. Parties in Attendance: I spoke with the patient who was in her bed, and at bedside were also the oldest daughter Kiara and the youngest daughter Mariel. Decisional Capacity of the Patient: She has good decisional capacity about the topic at hand, but has very poor memory, even poor recall about something from 5 minutes previously, although very good long-term memory however. The admission Dx is acute NSTEMI causing pulmonary edema. - Diagnosis for Encounter (1) Pulmonary edema Qualifiers: Qualified Code(s): J81.0 - Acute pulmonary edema - Encounter Subjective/Patient's Story: The patient has a history of DM, CKD, hypothyroidism, cardiomyopathy of unknown etiology, remote MS in 1977, CVA in 2009, and probable dementia, who presents with rapid onset of dyspnea and has been diagnosed with acute MS and pulmonary edema. She told the admitting Small Business Sales Representative that she wants "3 attempts at compressions with CPR done if she should have a cardiac arrest". A FULL CODE STATUS was ord ered. This morning she told her nurse and Kiara, her oldest daughter by phone, that she is accepting that she will and thinks that she is about to in the next 2 days. She told Kiara to to call the other 11 children to tell them this. I then spoke to Kiara by phone and updated her on the patient's clinical status and that she is not imminently dying. Kiara then called all the family members back. We then arranged for Kiara to come to [id number], be at bedside so everybody could speak together about her diagnoses, her care plans abnd her CODE STATUS, which is occurring now. Since those phone calls, the youngest daughter Mariel arrived on her own to the hospital, and is also at bedside for this meeting. Both daughters can remember parts of the past history: Patient had an MS in 1977, before her final . The results of the angiogram are not known. There was probably another angiogram done possibly 10 years ago. Over the last 2 years the patient's memory has been getting worse. Objective/Medical Story: The patient has a history of DM, CKD, hypothyroidism, cardiomyopathy of unknown etiology, remote MS in 1977, CVA in 2009, and probable dementia, who presents with rapid onset of dyspnea and has been diagnosed with acute MS and pulmonary edema. Records from her PCP office are expected to be faxed with any information about coronary angiograms or her cardiac status. Patient currently is still orthopneic and cannot lie flat to undergo an angiogram. Patient also has stage IV renal failure and would be at risk for kidney failure and needing dialysis, from the dye load of a coronary angiogram. We will decide in the next 1 or 2 days whether to proceed with a coronary angiogram. Regarding her CODE STATUS: The patient returned back to her initial desire which is to have CPR attempted and to be a full CODE STATUS. The 2 daughters agreed with that decision at bedside. Goals of Care: Patient wants all medical treatment done. Decision is still pending as to whether to plan transfer for coronary angiogram because of the risk of kidney failure. Full CODE STATUS will continue. Plan: As above. Code Status: Attempt Resuscitation Time spent on advance care plannin min
[2019-09-02] MEDS: FERROUS GLUCONATE 324 MG TABLET PO SCH (17:34)
[2019-09-02 21:14] LABS: HGB - HEMOGLOBIN 9.1 g/dL (12.0-16.0); MEAN CORPUSCULAR HEMOGLOBIN 32.5 pg (27.0-31.0); MEAN CORPUSCULAR HGB CONC 32.9 g/dL (32.0-36.0); MEAN CORPUSCULAR VOLUME 98.9 fL (81.0-99.0); MEAN PLATELET VOLUME 10.9 fL (7.9-10.8); RED BLOOD COUNT 2.8 10^6/uL (4.20-5.40); RED CELL DISTRIBUTION WIDTH 15.7 % (12.0-15.0); WHITE BLOOD COUNT 9.6 x10^3/uL (4.8-10.8)
[2019-09-02] MEDS: ATORVASTATIN 40 MG TABLET PO SCH (21:23)
[2019-09-02] MEDS ORDERED: CALCIUM CARBONATE CHEW 500 MG TABLET PO PRN (21:45)
[2019-09-03] MEDS: SODIUM CHLORIDE FLUSH 0.9% 10 ML SYRINGE IVP SCH ×3 (00:13→16:55)
[2019-09-03] MEDS: NITROGLYCERIN 2% PASTE TOP SCH ×3 (03:16→19:42)
[2019-09-03 05:05] LABS: BASOPHILS # (AUTO) 0.1 10^3/uL (0.0-0.1); BASOPHILS % (AUTO) 0.9 %; EOSINOPHILS # (AUTO) 0.2 10^3/uL (0.0-0.7); EOSINOPHILS % (AUTO) 1.7 %; LYMPHOCYTES # (AUTO) 1.4 10^3/uL (1.5-3.5); LYMPHOCYTES % (AUTO) 15.3 %; MEAN CORPUSCULAR HGB CONC 31.9 g/dL (32.0-36.0); MEAN CORPUSCULAR VOLUME 100.4 fL (81.0-99.0); MEAN PLATELET VOLUME 11.2 fL (7.9-10.8); MONOCYTES # (AUTO) 0.8 10^3/uL (0.0-1.0); MONOCYTES % (AUTO) 8.9 %; NEUTROPHILS # (AUTO) 6.4 10^3/uL (1.5-6.6); NEUTROPHILS % (AUTO) 72.6 %; PLT - PLATELET COUNT 239 10^3/uL (130-450); RED BLOOD COUNT 2.81 10^6/uL (4.20-5.40); RED CELL DISTRIBUTION WIDTH 15.8 % (12.0-15.0); WHITE BLOOD COUNT 8.8 x10^3/uL (4.8-10.8)
[2019-09-03 05:14] LABS: CALCIUM 8.8 mg/dL (8.5-10.3); CREATININE 1.9 mg/dL (0.4-1.0)
[2019-09-03 05:45] LABS: FOLATE 19.37 ng/mL (5.90 - >24.8)
[2019-09-03] MEDS: FUROSEMIDE 40 MG/4 ML VIAL IVP SCH ×2 (06:18→14:44)
[2019-09-03] MEDS: PANTOPRAZOLE 40 MG TABLET PO SCH (06:18)
[2019-09-03] MEDS: ASPIRIN CHEW 81 MG TABLET PO SCH (08:18)
[2019-09-03] MEDS: FERROUS GLUCONATE 324 MG TABLET PO SCH (08:18)
[2019-09-03] MEDS: guaiFENesin 600 MG TABLET PO SCH (08:18)
[2019-09-03] MEDS: allopurinoL 100 MG TABLET PO SCH (08:18)
[2019-09-03] MEDS: METOPROLOL SUCCINATE 25 MG TABLET PO SCH (08:18)
[2019-09-03] MEDS: INSULIN ASPART 300 UNIT/3 ML PEN SUBQ SCH ×4 (08:18→21:07)
[2019-09-03] MEDS: AZITHROMYCIN INJ 500 MG in SODIUM CHLORIDE 0.9% 250 ML IV SCH (08:19)
[2019-09-03] MEDS: INSULIN GLARGINE 300 UNIT/3 ML PEN SUBQ SCH (10:23)
[2019-09-03] MEDS: cefTRIAXone 1 GM in SODIUM CHLORIDE 0.9% MINIBAG 100 ML IV SCH (10:23)
[2019-09-03] MEDS: polyethylene glycoL 3350 17 GM PACKET PO SCH (11:49)
[2019-09-03] MEDS: SODIUM CHLORIDE FLUSH 0.9% 10 ML SYRINGE IVP PRN ×2 (11:50→14:45)
--- NOTE | 2019-09-03 16:13 | PROVIDER PROGRESS NOTE ---
Assessment/Plan - Problem List (1) Pulmonary edema Qualifiers: Qualified Code(s): J81.0 - Acute pulmonary edema Assessment/Plan: She is improving slowly; she is only 500 cc negative in fluid status since admission. 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 Follow I's and O's, daily weights, electrolytes and magnesium. (2) Acute respiratory failure with hypoxia Assessment/Plan: Admit continue supplemental oxygen. Treat the underlying problem with the diuretic (3) Acute non-ST elevation myocardial infarction (NSTEMI) Assessment/Plan: She is on aspirin, beta-omid, statin. The LVEF is 40-45% by Echo with 2 regions of wall motion abnormalities. There is been no further hemoptysis since day 1. Because of the severe anemia, a guaic of stool has been ordered and is still pending. Because of hemoptysis and severe anemia with poss GI blood loss, she did not get IV heparin for the first 48 hours. Pradaxa is on hold because of hemoptysis and also will need to be held if she gets a coronary angiogram. Will start subcu heparin twice daily, prophylactic dose as we are awaiting the stool guaiac result. I discussed the risks and benefits of coronary angiogram with the patient as well as 2 daughters at bedside yesterday. They are all considering it. I also have requested old records to determine what any prior angiogram found. Her biggest risk would be worsening renal failure since she already has stage IV CKD. (4) Chronic systolic heart failure Assessment/Plan: As per Hx, which was likely from her [place] in 1977. (5) Hemoptysis Assessment/Plan: None more for the 2 days now, since off Pradaxa. (6) Anemia Assessment/Plan: He presented with hemoglobin of 8 which dropped to 6.3, despite ordering diu resis (however she was only 100 cc negative and fluid balance on that day). She received 2 unit PRBCs. Oral Iron supplement also started. Follow CBC daily. 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 (8) Chronic a-fib Assessment/Plan: She had been on B-omid and Pradaxa at home. The Pradaxa is on hold (as above). The current Toprol dose is keeping her rate under control. (9) Diabetes mellitus Assessment/Plan: Continue with sliding scale insulin coverage and carb controlled diet. (10) Hypertension Assessment/Plan: BP stable, under control, on current new cardiac meds and management. (11) Gout Assessment/Plan: She is on her low-dose of allopurinol 100 mg daily for this. (12) Dementia Assessment/Plan: I witnessed many examples of her poor short-term memory since being admitted. The 2 daughters at bedside yesterday confirmed her very poor memory. - Current Meds Current Meds: Current Medications Generic Name Dose Route Start Last Admin Trade Name Freq PRN Reason Stop Dose Admin Allopurinol 100 mg 09/01/19 11:00 09/03/19 08:18 Zyloprim PO 100 mg DAILY ELLEN Administration Aspirin 81 mg 09/02/19 09:00 09/03/19 08:18 [place] Aspirin PO 81 mg DAILY ELLEN Administration Atorvastatin Calcium 40 mg 09/01/19 21:00 09/02/19 21:23 Lipitor PO 40 mg QPM ELLEN Administration Calcium Carbonate/Glycine 500 mg 09/02/19 21:45 09/02/19 22:17 Tums PO 500 mg TID PRN Administration Heartburn Ferrous Gluconate 324 mg 09/02/19 18:00 09/03/19 08:18 Fergon PO 324 mg DAILYWM ELLEN Administration Furosemide 40 mg 09/01/19 14:00 09/03/19 14:44 Lasix Inj 40 Mg Vial IVP 40 mg BIDDIURETIC ELLEN Administration Guaifenesin 600 mg 09/01/19 21:00 09/03/19 08:18 Mucinex PO 600 mg BID ELLEN Administration Ceftriaxone Sodium 1 gm/ 100 mls @ 200 mls/hr 09/01/19 09:00 09/03/19 10:58 Sodium Chloride IV 09/05/19 09:29 Infused DAILY ELLEN Infusion Insulin Aspart 1 - 5 unit 09/01/19 08:00 09/03/19 11:50 Novolog SUBQ 2 unit 0800,1200,1700,2100 ELLEN Administration Protocol Insulin Glargine 8 unit 09/03/19 09:00 09/03/19 10:23 Lantus Solostar SUBQ 8 unit DAILY ELLEN Administration Metoprolol Succinate 25 mg 09/01/19 09:00 09/03/19 08:18 Toprol Xl PO 25 mg DAILY ELLEN Administration Nitroglycerin 0.5 inch 09/01/19 11:00 09/03/19 11:05 Nitro-Bid (Pkt) TOP 0.5 inch Q8H ELLEN Administration Pantoprazole Sodium 40 mg 09/01/19 07:00 09/03/19 06:18 Protonix PO 40 mg QDAC ELLEN Administration Polyethylene Glycol 17 gm 09/03/19 11:00 09/03/19 11:49 Miralax PO 17 gm DAILY ELLEN Administration Sodium Chloride 10 ml 09/01/19 03:05 09/03/19 14:45 Normal Saline Flush 0.9% IVP 10 ml PRN PRN Administration NEEDED PER PROVIDER ORDERS Sodium Chloride 10 ml 09/01/19 09:00 09/03/19 08:20 Normal Saline Flush 0.9% IVP 10 ml 0100,0900,1700 ELLEN Administration - Lab Result Fish Bone Diagrams: 09/03/19 04:35 09/03/19 04:35 - Additional Planning My Orders: My Active Orders 09/02/19 18:00 Ferrous Gluconate [Fergon] 324 mg PO DAILYWM 09/03/19 Evaluate and Treat OT [OT] Routine Evaluate and Treat PT [PT] Routine 09/03/19 09:00 Insulin Glargine [Lantus Solostar] 8 unit SUBQ DAILY Subjective - Subjective Patient Reports: Shortness of Breath Nursing Reports: Other (She started working with physical therapy today, was short of breath after 30 feet.) Objective Vital Signs: Vital Signs - 24 hr 09/02/19 09/02/19 09/03/19 17:01 20:01 00:00 Temperature 36.8 C 36.8 C 36.6 C Heart Rate [ Activity] Heart Rate [ 60 60 61 Brachial] Heart Rate [ Sitting] Respiratory 23 23 16 Rate Blood Pressure [Activity] Blood Pressure 149/67 H 151/67 H 131/70 H [Left Brachial artery] Blood Pressure [Sitting] O2 Saturation 98 98 96 09/03/19 09/03/19 09/03/19 03:00 06:00 08:09 Temperature 36.3 C L 36.4 C L 36.4 C L Heart Rate [ Activity] Heart Rate [ 54 L 59 L 65 Brachial] Heart Rate [ Sitting] Respiratory 16 18 20 Rate Blood Pressure [Activity] Blood Pressure 121/49 L 155/84 H 152/62 H [Left Brachial artery] Blood Pressure [Sitting] O2 Saturation 98 97 97 09/03/19 09/03/19 09/03/19 12:00 12:20 12:35 Temperature 36.5 C Heart Rate [ 71 57 L Activity] Heart Rate [ 54 L Brachial] Heart Rate [ 59 L 55 L Sitting] Respiratory 18 Rate Blood Pressure 133/58 H 133/59 H [Activity] Blood Pressure 133/57 H [Left Brachial artery] Blood Pressure 149/66 H 149/56 H [Sitting] O2 Saturation 97 09/03/19 15:30 Temperature 36.7 C Heart Rate [ Activity] Heart Rate [ 56 L Brachial] Heart Rate [ Sitting] Respiratory 18 Rate Blood Pressure [Activity] Blood Pressure 135/72 H [Left Brachial artery] Blood Pressure [Sitting] O2 Saturation 96 Oxygen O2 Source Nasal cannula Oxygen Flow Rate 2 I&O (Last 24 Hrs): Intake and Output Totals x24h 09/01/19 09/02/19 09/03/19 23:59 23:59 23:59 Intake Total 1872 1630 790 Output Total 925 2750 900 Balance 947 -1120 -110 General: Alert HEENT: Mucous membr. moist/pink Neck: Supple Neuro: Alert, Non Focal Cardiovascular: Regular rate Respiratory: No respiratory distress, Other (Crackles at bases) Abdomen: Soft Extremities: No edema - Results Results: Laboratory Results WBC 8.8 x10^3/uL (4.8-10.8) 09/03/19 04:35 RBC 2.81 10^6/uL (4.20-5.40) L 09/03/19 04:35 Hgb 9.0 g/dL (12.0-16.0) L 09/03/19 04:35 Hct 28.2 % (37.0-47.0) L 09/03/19 04:35 MCV 100.4 fL (81.0-99.0) H 09/03/19 04:35 MCH 32.0 pg (27.0-31.0) H 09/03/19 04:35 MCHC 31.9 g/dL (32.0-36.0) L 09/03/19 04:35 RDW 15.8 % (12.0-15.0) H 09/03/19 04:35 Plt Count 239 10^3/uL (130-450) 09/03/19 04:35 MPV 11.2 fL (7.9-10.8) H 09/03/19 04:35 Neut # (Auto) 6.4 10^3/uL (1.5-6.6) 09/03/19 04:35 Lymph # (Auto) 1.4 10^3/uL (1.5-3.5) L 09/03/19 04:35 [place] # (Auto) 0.8 10^3/uL (0.0-1.0) 09/03/19 04:35 Eos # (Auto) 0.2 10^3/uL (0.0-0.7) 09/03/19 04:35 Baso # (Auto) 0.1 10^3/uL (0.0-0.1) 09/03/19 04:35 Absolute Nucleated RBC 0.02 x10^3/uL 09/03/19 04:35 Nucleated RBC % 0.2 /100WBC 09/03/19 04:35 PT 19.4 secs (9.9-12.6) H 09/01/19 02:00 INR 1.8 (0.8-1.2) H 09/01/19 02:00 APTT 75.1 secs (24.9-33.3) H 09/01/19 02:00 Anti-Xa Level 0.1 U/mL (-0.7) 09/01/19 14:16 Sodium 139 mmol/L (135-145) 09/03/19 04:35 Potassium 4.1 mmol/L (3.5-5.0) 09/03/19 04:35 Chloride 103 mmol/L (101-111) 09/03/19 04:35 Carbon Dioxide 26 mmol/L (21-32) 09/03/19 04:35 Anion Gap 10.0 (6-13) 09/03/19 04:35 BUN 66 mg/dL (6-20) H 09/03/19 04:35 Creatinine 1.9 mg/dL (0.4-1.0) H 09/03/19 04:35 Estimated GFR (MDRD) 25 (>89) L 09/03/19 04:35 Glucose 136 mg/dL (70-100) H 09/03/19 04:35 Glycated Hemoglobin 6.0 % (4.6-6.2) 09/02/19 09:04 Estim Average Glucose 126 (70-100) H 09/02/19 09:04 Lactic Acid 1.2 mmol/L (0.5-2.2) 09/01/19 02:00 Uric Acid 7.4 mg/dL (2.6-7.2) H 09/01/19 09:35 Calcium 8.8 mg/dL (8.5-10.3) 09/03/19 04:35 Magnesium 2.6 mg/dL (1.7-2.8) 09/01/19 02:00 Total Bilirubin 0.5 mg/dL (0.2-1.0) 09/01/19 02:00 AST 21 IU/L (10-42) 09/01/19 02:00 ALT 16 IU/L (10-60) 09/01/19 02:00 Alkaline Phosphatase 103 IU/L (42-121) 09/01/19 02:00 Total Creatine Kinase 66 IU/L (22-269) 09/01/19 02:00 Troponin I High Sens 1055.4 ng/L (2.3-14.8) H* 09/02/19 09:04 B-Natriuretic Peptide 3731 pg/mL (5-100) H 09/03/19 04:35 Total Protein 7.5 g/dL (6.7-8.2) 09/01/19 02:00 Albumin 3.9 g/dL (3.2-5.5) 09/01/19 02:00 Globulin 3.6 g/dL (2.1-4.2) 09/01/19 02:00 Albumin/Globulin Ratio 1.1 (1.0-2.2) 09/01/19 02:00 Triglycerides 65 mg/dL (-149) 09/01/19 05:40 Cholesterol 92 mg/dL (-199) 09/01/19 05:40 LDL Cholesterol, Calc 36 mg/dL (-129) 09/01/19 05:40 VLDL Cholesterol 13 mg/dL 09/01/19 05:40 HDL Cholesterol 43 mg/dL (60-) L 09/01/19 05:40 LDL/HDL Ratio 0.8 (<4.4) 09/01/19 05:40 Cholesterol/HDL Ratio 2.1 (<4.4) 09/01/19 05:40 Lipase 70 U/L (22-51) H 09/01/19 02:00 Vitamin B12 2942 pg/mL (180-914) H 09/03/19 04:35 Folate 19.37 ng/mL (5.90 - >24.8) 09/03/19 04:35 Urine Color YELLOW 09/01/19 07:54 Urine Clarity CLEAR (CLEAR) 09/01/19 07:54 Urine pH 5.5 PH (5.0-7.5) 09/01/19 07:54 Ur Specific [place] 1.015 (1.002-1.030) 09/01/19 07:54 Urine Protein 30 mg/dL (NEGATIVE) H 09/01/19 07:54 Urine Glucose (UA) NEGATIVE mg/dL (NEGATIVE) 09/01/19 07:54 Urine Ketones NEGATIVE mg/dL (NEGATIVE) 09/01/19 07:54 Urine Occult Blood NEGATIVE (NEGATIVE) 09/01/19 07:54 Urine Nitrite POSITIVE (NEGATIVE) H 09/01/19 07:54 Urine Bilirubin NEGATIVE (NEGATIVE) 09/01/19 07:54 Urine Urobilinogen 0.2 (NORMAL) E.U./dL (NORMAL) 09/01/19 07:54 Ur Leukocyte Esterase NEGATIVE (NEGATIVE) 09/01/19 07:54 Urine RBC None Seen /HPF (0-5) 09/01/19 07:54 Urine WBC 6-10 /HPF (0-5) H 09/01/19 07:54 Urine WBC Clumps PRESENT 09/01/19 07:54 Ur Squamous Epith Cells FEW Squamous (<= Few) 09/01/19 07:54 Urine Bacteria Few /HPF (None Seen) 09/01/19 07:54 Urine Casts 0-2 Hyaline Casts /LPF 09/01/19 07:54 Ur Microscopic Review INDICATED 09/01/19 07:54 Urine Culture Comments INDICATED 09/01/19 07:54 Coronavirus (PCR) NEGATIVE 09/01/19 02:55 Influenza A (Rapid) Negative (Negative) 09/01/19 02:55 Influenza B (Rapid) Negative (Negative) 09/01/19 02:55 Blood Type A POSITIVE 09/01/19 22:20 Blood Type Recheck A POSITIVE 09/01/19 21:30 Antibody Screen NEGATIVE 09/01/19 22:20 Crossmatch IS Only See Detail 09/01/19 22:20
[2019-09-03] MEDS: ATORVASTATIN 40 MG TABLET PO SCH (21:07)
[2019-09-04] MEDS: HEPARIN 5,000 UNIT/ML VIAL SUBQ SCH ×3 (01:28→21:08)
[2019-09-04] MEDS: SODIUM CHLORIDE FLUSH 0.9% 10 ML SYRINGE IVP PRN ×4 (05:01→08:28)
[2019-09-04] MEDS: SODIUM CHLORIDE FLUSH 0.9% 10 ML SYRINGE IVP SCH ×4 (05:01→23:32)
[2019-09-04] MEDS: NITROGLYCERIN 2% PASTE TOP SCH (05:31)
[2019-09-04 05:33] LABS: BASOPHILS # (AUTO) 0.1 10^3/uL (0.0-0.1); BASOPHILS % (AUTO) 0.7 %; EOSINOPHILS # (AUTO) 0.4 10^3/uL (0.0-0.7); HGB - HEMOGLOBIN 7.9 g/dL (12.0-16.0); LYMPHOCYTES # (AUTO) 1.4 10^3/uL (1.5-3.5); LYMPHOCYTES % (AUTO) 15.9 %; MEAN CORPUSCULAR HEMOGLOBIN 31.7 pg (27.0-31.0); MEAN CORPUSCULAR HGB CONC 31.2 g/dL (32.0-36.0); MEAN CORPUSCULAR VOLUME 101.6 fL (81.0-99.0); MEAN PLATELET VOLUME 10.9 fL (7.9-10.8); MONOCYTES # (AUTO) 0.7 10^3/uL (0.0-1.0); MONOCYTES % (AUTO) 8.1 %; NEUTROPHILS # (AUTO) 6.2 10^3/uL (1.5-6.6); NEUTROPHILS % (AUTO) 69.8 %; PLT - PLATELET COUNT 212 10^3/uL (130-450); RED BLOOD COUNT 2.49 10^6/uL (4.20-5.40); RED CELL DISTRIBUTION WIDTH 15.1 % (12.0-15.0); WHITE BLOOD COUNT 8.8 x10^3/uL (4.8-10.8)
[2019-09-04] MEDS: FUROSEMIDE 40 MG/4 ML VIAL IVP SCH ×2 (05:35→14:25)
[2019-09-04 05:49] LABS: CALCIUM 8.3 mg/dL (8.5-10.3)
[2019-09-04] MEDS: PANTOPRAZOLE 40 MG TABLET PO SCH (06:19)
[2019-09-04] MEDS: ISOSORBIDE MONONITRATE ER 30 MG TABLET PO SCH (08:24)
[2019-09-04] MEDS: FERROUS GLUCONATE 324 MG TABLET PO SCH (08:24)
[2019-09-04] MEDS: ASPIRIN CHEW 81 MG TABLET PO SCH (08:25)
[2019-09-04] MEDS: METOPROLOL SUCCINATE 25 MG TABLET PO SCH ×2 (08:25→13:02)
[2019-09-04] MEDS: allopurinoL 100 MG TABLET PO SCH (08:25)
[2019-09-04] MEDS: LEVOTHYROXINE 100 MCG TABLET PO SCH (08:25)
[2019-09-04] MEDS: INSULIN ASPART 300 UNIT/3 ML PEN SUBQ SCH ×4 (08:26→21:40)
[2019-09-04] MEDS: INSULIN GLARGINE 300 UNIT/3 ML PEN SUBQ SCH (08:26)
[2019-09-04] MEDS: polyethylene glycoL 3350 17 GM PACKET PO SCH (08:27)
--- NOTE | 2019-09-04 10:00 | XRAY Report ---
PROCEDURE: Chest 1 View X-Ray INDICATIONS: F/U CHF TECHNIQUE: One view of the chest was acquired. COMPARISON: To prior chest radiographs, both on 09/01/2019 FINDINGS: Surgical changes and devices: A right-sided PICC line is seen, with the tip terminating overlying the axillary vein. Lungs and pleura: Abnormal interstitial prominence is seen. Blunting of the costophrenic angles is se en. Mediastinum: The aorta is prominent and tortuous. The cardiac contours are moderately enlarged. Bones and chest wall: No suspicious bony lesions. Age-appropriate degenerative changes are seen. Mild dextroconvex scoliotic curvature is seen. Overlying soft tissues appear unremarkable. IMPRESSION: Improved CHF. Right-sided PICC line again terminating overlying the right axillary vein. Reviewed by: Jarred De La Cruz MD on 09/04/2019 8:58 AM NANCY Approved by: Jarred De La Cruz MD on 09/04/2019 8:58 AM NANCY Station ID: [id number]
--- NOTE | 2019-09-04 17:23 | PROVIDER PROGRESS NOTE ---
Assessment/Plan - Problem List (1) Pulmonary edema Qualifiers: Qualified Code(s): J81.0 - Acute pulmonary edema Assessment/Plan: Auscultation exam is similar to yesterday. Her O2 supplemental demand is lower however. Unknown if she is able to sleep supine yet, she is not a reliable historian. We will obtain a chest x-ray tomorrow. (2) Acute respiratory failure with hypoxia Assessment/Plan: She has had minimal negative fluid balance status, today the Lasix dose is higher. Continue to follow I's and O's. Wean supplemental oxygen down as possible. We will check a chest x-ray tomorrow (3) Acute non-ST elevation myocardial infarction (NSTEMI) Assessment/Plan: She is on aspirin, beta-omid and statin. She is on Imdur, changed from Nitropaste. Heparin subcutaneous at prophylactic dose was started last night after a negative stool returned from guaiac test. No more hemoptysis since day 1. She is past the 48 hours to use therapeutic IV heparin drip. I discussed with her the option of coronary geography and advised that she have this and she is pretty sure she will have it, her daughter, Kiara, does want her to have it. I did not receive any old records from Dr. Alexandra's office to indicate where she has had prior angiograms or what prior results were. We will therefore contact [facility] tomorrow for potential transfer for angiogram in the upcoming week (4) Chronic systolic heart failure Assessment/Plan: LVEF is about 45% with 2 regions of wall motion abnormalities. It is now been established she had an old HI in 1977. She is not on OLEG, this was held because of her CKD. She is not on spironolactone, this was held because of her recent hyperkalemia. It was learned that at the hospitalization at [facility] 1 month ago, all her diuretics were stopped. Continue the beta-omid (5) Hemoptysis Assessment/Plan: Resolved after day 1, Pradaxa was put on hold thgerefore. (6) Anemia Assessment/Plan: Hemoglobin dropped again slightly to 7.9 from 9, despite diuretics. She is on iron replacement. Follow CBC daily. 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 Creatinine seems to have plateaued at 1.9. Follow BMP daily (8) Chronic a-fib Assessment/Plan: A repeat EKG shows atrial flutter. HR is 50's -60's. She was on Pradaxa but this was stopped because of hemoptysis on day 1. She is on aspirin currently. (9) Diabetes mellitus Assessment/Plan: Continue with carb controlled diet and sliding scale insulin (10) Hypertension Assessment/Plan: The current cardiac medications are controlling her blood pressure. They were changed from what she was on before admission, needed for the acute HI and the pulmonary edema. (11) Gout Assessment/Plan: She is on her low-dose allopurinol daily (12) Dementia Assessment/Plan: Poor memory has been witnessed. - Current Meds Current Meds: Current Medications Generic Name Dose Route Start Last Admin Trade Name Freq PRN Reason Stop Dose Admin Allopurinol 100 mg 09/01/19 11:00 09/04/19 08:25 Zyloprim PO 100 mg DAILY ELLEN Administration Aspirin 81 mg 09/02/19 09:00 09/04/19 08:25 [facility] [place] Aspirin PO 81 mg DAILY ELLEN Administration Atorvastatin Calcium 40 mg 09/01/19 21:00 09/03/19 21:07 Lipitor PO 40 mg QPM ELLEN Administration Calcium Carbonate/Glycine 500 mg 09/02/19 21:45 09/02/19 22:17 Tums PO 500 mg TID PRN Administration Heartburn Ferrous Gluconate 324 mg 09/02/19 18:00 09/04/19 08:24 Fergon PO 324 mg DAILYWM ELLEN Administration Furosemide 80 mg 09/04/19 06:00 09/04/19 14:25 Lasix Inj 40 Mg Vial IVP 80 mg BIDDIURETIC ELLEN Administration Heparin Sodium (Porcine) 5,000 unit 09/03/19 23:45 09/04/19 08:28 SUBQ 5,000 unit BID ELLEN Administration Insulin Aspart 1 - 5 unit 09/01/19 08:00 09/04/19 16:52 Novolog SUBQ 1 unit 0800,1200,1700,2100 ELLEN Administration Protocol Insulin Glargine 8 unit 09/03/19 09:00 09/04/19 08:26 Lantus Solostar SUBQ 8 unit DAILY ELLEN Administration Isosorbide Mononitrate 30 mg 09/04/19 09:00 09/04/19 08:24 Imdur PO 30 mg DAILY ELLEN Administration Levothyroxine Sodium 100 mcg 09/04/19 09:00 09/04/19 08:25 Synthroid PO 100 mcg DAILY ELLEN Administration Metoprolol Succinate 25 mg 09/01/19 09:00 09/04/19 13:02 Toprol Xl PO 25 mg DAILY ELLEN Administration Pantoprazole Sodium 40 mg 09/01/19 07:00 09/04/19 06:19 Protonix PO 40 mg QDAC ELLEN Administration Polyethylene Glycol 17 gm 09/03/19 11:00 09/04/19 08:27 Miralax PO Not Given DAILY ELLEN Sodium Chloride 10 ml 09/01/19 03:05 09/04/19 08:28 Normal Saline Flush 0.9% IVP 10 ml PRN PRN Administration NEEDED PER PROVIDER ORDERS Sodium Chloride 10 ml 09/01/19 09:00 09/04/19 16:53 Normal Saline Flush 0.9% IVP 30 ml 0100,0900,1700 ELLEN Administration - Lab Result Fish Bone Diagrams: 09/04/19 05:00 09/04/19 05:00 - Additional Planning My Orders: My Active Orders 09/04/19 06:00 FUROSEMIDE INJ 40mg VIAL [LASIX INJ 40 mg VIAL] 80 mg IVP BIDDIURETIC 09/04/19 09:00 Isosorbide Mononitrate ER [Imdur] 30 mg PO DAILY Levothyroxine [Synthroid] 100 mcg PO DAILY Subjective - Subjective Patient Reports: Feeling Better, Resting Comfortably, No Complaints Nursing Reports: Other (Speech is more slurred today and she is more bradykinetic, per RN.) Objective Vital Signs: Vital Signs - 24 hr 09/03/19 09/03/19 09/04/19 18:00 21:00 00:00 Temperature 36.8 C 36.7 C 36.8 C Heart Rate [ 53 L 57 L 51 L Brachial] Respiratory 18 18 18 Rate Blood Pressure 131/56 H 132/47 H 106/44 L [Left Brachial artery] O2 Saturation 100 95 98 09/04/19 09/04/19 09/04/19 02:26 05:21 08:50 Temperature 36.8 C 36.8 C 36.4 C L Heart Rate [ 54 L 53 L 53 L Brachial] Respiratory 18 18 18 Rate Blood Pressure 129/66 134/46 H 139/50 H [Left Brachial artery] O2 Saturation 95 96 97 09/04/19 09/04/19 09/04/19 10:33 11:28 11:57 Temperature 36.5 C Heart Rate [ 57 L 58 L Brachial] Respiratory 18 15 Rate Blood Pressure 135/57 H 152/74 H [Left Brachial artery] O2 Saturation 94 95 97 09/04/19 09/04/19 12:00 16:11 Temperature 36.1 C L Heart Rate [ 63 Brachial] Respiratory 15 18 Rate Blood Pressure 151/67 H [Left Brachial artery] O2 Saturation 94 94 Oxygen O2 Source Room air Oxygen Flow Rate 2 I&O (Last 24 Hrs): Intake and Output Totals x24h 09/02/19 09/03/19 09/04/19 23:59 23:59 23:59 Intake Total 1630 1264 716 Output Total 8580 6148 1125 Balance -1120 -36 -409 General: Alert HEENT: Mucous membr. moist/pink Neck: Supple, No JVD Neuro: Alert, Other (Speech is more slurred and she appears more fatigued today) Cardiovascular: Regular rate, No murmurs Respiratory: Rales (Bibasilar crackles) Abdomen: Soft Extremities: No edema - Results Results: Laboratory Results WBC 8.8 x10^3/uL (4.8-10.8) 09/04/19 05:00 RBC 2.49 10^6/uL (4.20-5.40) L 09/04/19 05:00 Hgb 7.9 g/dL (12.0-16.0) L 09/04/19 05:00 Hct 25.3 % (37.0-47.0) L 09/04/19 05:00 MCV 101.6 fL (81.0-99.0) H 09/04/19 05:00 MCH 31.7 pg (27.0-31.0) H 09/04/19 05:00 MCHC 31.2 g/dL (32.0-36.0) L 09/04/19 05:00 RDW 15.1 % (12.0-15.0) H 09/04/19 05:00 Plt Count 212 10^3/uL (130-450) 09/04/19 05:00 MPV 10.9 fL (7.9-10.8) H 09/04/19 05:00 Neut # (Auto) 6.2 10^3/uL (1.5-6.6) 09/04/19 05:00 Lymph # (Auto) 1.4 10^3/uL (1.5-3.5) L 09/04/19 05:00 [place] # (Auto) 0.7 10^3/uL (0.0-1.0) 09/04/19 05:00 Eos # (Auto) 0.4 10^3/uL (0.0-0.7) 09/04/19 05:00 Baso # (Auto) 0.1 10^3/uL (0.0-0.1) 09/04/19 05:00 Absolute Nucleated RBC 0.00 x10^3/uL 09/04/19 05:00 Nucleated RBC % 0.0 /100WBC 09/04/19 05:00 PT 19.4 secs (9.9-12.6) H 09/01/19 02:00 INR 1.8 (0.8-1.2) H 09/01/19 02:00 APTT 75.1 secs (24.9-33.3) H 09/01/19 02:00 Anti-Xa Level 0.1 U/mL (-0.7) 09/01/19 14:16 Sodium 138 mmol/L (135-145) 09/04/19 05:00 Potassium 3.6 mmol/L (3.5-5.0) 09/04/19 05:00 Chloride 102 mmol/L (101-111) 09/04/19 05:00 Carbon Dioxide 27 mmol/L (21-32) 09/04/19 05:00 Anion Gap 9.0 (6-13) 09/04/19 05:00 BUN 76 mg/dL (6-20) H 09/04/19 05:00 Creatinine 2.0 mg/dL (0.4-1.0) H 09/04/19 05:00 Estimated GFR (MDRD) 24 (>89) L 09/04/19 05:00 Glucose 125 mg/dL (70-100) H 09/04/19 05:00 Glycated Hemoglobin 6.0 % (4.6-6.2) 09/02/19 09:04 Estim Average Glucose 126 (70-100) H 09/02/19 09:04 Lactic Acid 1.2 mmol/L (0.5-2.2) 09/01/19 02:00 Uric Acid 7.4 mg/dL (2.6-7.2) H 09/01/19 09:35 Calcium 8.3 mg/dL (8.5-10.3) L 09/04/19 05:00 Magnesium 2.6 mg/dL (1.7-2.8) 09/01/19 02:00 Total Bilirubin 0.5 mg/dL (0.2-1.0) 09/01/19 02:00 AST 21 IU/L (10-42) 09/01/19 02:00 ALT 16 IU/L (10-60) 09/01/19 02:00 Alkaline Phosphatase 103 IU/L (42-121) 09/01/19 02:00 Total Creatine Kinase 66 IU/L (22-269) 09/01/19 02:00 Troponin I High Sens 510.6 ng/L (2.3-14.8) H* 09/04/19 05:00 B-Natriuretic Peptide 3731 pg/mL (5-100) H 09/03/19 04:35 Total Protein 7.5 g/dL (6.7-8.2) 09/01/19 02:00 Albumin 3.9 g/dL (3.2-5.5) 09/01/19 02:00 Globulin 3.6 g/dL (2.1-4.2) 09/01/19 02:00 Albumin/Globulin Ratio 1.1 (1.0-2.2) 09/01/19 02:00 Triglycerides 65 mg/dL (-149) 09/01/19 05:40 Cholesterol 92 mg/dL (-199) 09/01/19 05:40 LDL Cholesterol, Calc 36 mg/dL (-129) 09/01/19 05:40 VLDL Cholesterol 13 mg/dL 09/01/19 05:40 HDL Cholesterol 43 mg/dL (60-) L 09/01/19 05:40 LDL/HDL Ratio 0.8 (<4.4) 09/01/19 05:40 Cholesterol/HDL Ratio 2.1 (<4.4) 09/01/19 05:40 Lipase 70 U/L (22-51) H 09/01/19 02:00 Vitamin B12 2942 pg/mL (180-914) H 09/03/19 04:35 Folate 19.37 ng/mL (5.90 - >24.8) 09/03/19 04:35 Urine Color YELLOW 09/01/19 07:54 Urine Clarity CLEAR (CLEAR) 09/01/19 07:54 Urine pH 5.5 PH (5.0-7.5) 09/01/19 07:54 Ur Specific [place] 1.015 (1.002-1.030) 09/01/19 07:54 Urine Protein 30 mg/dL (NEGATIVE) H 09/01/19 07:54 Urine Glucose (UA) NEGATIVE mg/dL (NEGATIVE) 09/01/19 07:54 Urine Ketones NEGATIVE mg/dL (NEGATIVE) 09/01/19 07:54 Urine Occult Blood NEGATIVE (NEGATIVE) 09/01/19 07:54 Urine Nitrite POSITIVE (NEGATIVE) H 09/01/19 07:54 Urine Bilirubin NEGATIVE (NEGATIVE) 09/01/19 07:54 Urine Urobilinogen 0.2 (NORMAL) E.U./dL (NORMAL) 09/01/19 07:54 Ur Leukocyte Esterase NEGATIVE (NEGATIVE) 09/01/19 07:54 Urine RBC None Seen /HPF (0-5) 09/01/19 07:54 Urine WBC 6-10 /HPF (0-5) H 09/01/19 07:54 Urine WBC Clumps PRESENT 09/01/19 07:54 Ur Squamous Epith Cells FEW Squamous (<= Few) 09/01/19 07:54 Urine Bacteria Few /HPF (None Seen) 09/01/19 07:54 Urine Casts 0-2 Hyaline Casts /LPF 09/01/19 07:54 Ur Microscopic Review INDICATED 09/01/19 07:54 Urine Culture Comments INDICATED 09/01/19 07:54 Coronavirus (PCR) NEGATIVE 09/01/19 02:55 Influenza A (Rapid) Negative (Negative) 09/01/19 02:55 Influenza B (Rapid) Negative (Negative) 09/01/19 02:55 Blood Type A POSITIVE 09/01/19 22:20 Blood Type Recheck A POSITIVE 09/01/19 21:30 Antibody Screen NEGATIVE 09/01/19 22:20 Crossmatch IS Only See Detail 09/01/19 22:20
[2019-09-04] MEDS: ATORVASTATIN 40 MG TABLET PO SCH (21:08)
[2019-09-05 05:17] LABS: BASOPHILS # (AUTO) 0.1 10^3/uL (0.0-0.1); BASOPHILS % (AUTO) 0.5 %; EOSINOPHILS # (AUTO) 0.5 10^3/uL (0.0-0.7); EOSINOPHILS % (AUTO) 5.5 %; HGB - HEMOGLOBIN 8.5 g/dL (12.0-16.0); LYMPHOCYTES # (AUTO) 1.3 10^3/uL (1.5-3.5); LYMPHOCYTES % (AUTO) 13.9 %; MEAN CORPUSCULAR HEMOGLOBIN 32.3 pg (27.0-31.0); MEAN CORPUSCULAR HGB CONC 32.3 g/dL (32.0-36.0); MONOCYTES # (AUTO) 0.7 10^3/uL (0.0-1.0); MONOCYTES % (AUTO) 7.7 %; NEUTROPHILS # (AUTO) 6.6 10^3/uL (1.5-6.6); NEUTROPHILS % (AUTO) 71.9 %; PLT - PLATELET COUNT 238 10^3/uL (130-450); RED BLOOD COUNT 2.63 10^6/uL (4.20-5.40); RED CELL DISTRIBUTION WIDTH 14.8 % (12.0-15.0); WHITE BLOOD COUNT 9.1 x10^3/uL (4.8-10.8)
[2019-09-05] MEDS: SODIUM CHLORIDE FLUSH 0.9% 10 ML SYRINGE IVP PRN ×4 (05:20→14:19)
[2019-09-05 05:31] LABS: CALCIUM 8.5 mg/dL (8.5-10.3); CREATININE 1.9 mg/dL (0.4-1.0)
[2019-09-05] MEDS: FUROSEMIDE 40 MG/4 ML VIAL IVP SCH ×2 (06:47→14:18)
[2019-09-05] MEDS: PANTOPRAZOLE 40 MG TABLET PO SCH (06:47)
[2019-09-05] MEDS ORDERED: POTASSIUM CHLORIDE 20 MEQ TABLET PO ONE (08:02)
[2019-09-05] MEDS: allopurinoL 100 MG TABLET PO SCH (08:10)
[2019-09-05] MEDS: INSULIN ASPART 300 UNIT/3 ML PEN SUBQ SCH ×4 (08:10→20:56)
[2019-09-05] MEDS: FERROUS GLUCONATE 324 MG TABLET PO SCH (08:10)
[2019-09-05] MEDS: LEVOTHYROXINE 100 MCG TABLET PO SCH (08:10)
[2019-09-05] MEDS: polyethylene glycoL 3350 17 GM PACKET PO SCH (08:10)
[2019-09-05] MEDS: ISOSORBIDE MONONITRATE ER 30 MG TABLET PO SCH (08:10)
[2019-09-05] MEDS: METOPROLOL SUCCINATE 25 MG TABLET PO SCH (08:10)
[2019-09-05] MEDS: ASPIRIN CHEW 81 MG TABLET PO SCH (08:10)
[2019-09-05] MEDS: INSULIN GLARGINE 300 UNIT/3 ML PEN SUBQ SCH (08:14)
[2019-09-05] MEDS: HEPARIN 5,000 UNIT/ML VIAL SUBQ SCH ×2 (08:14→20:59)
[2019-09-05] MEDS: SODIUM CHLORIDE FLUSH 0.9% 10 ML SYRINGE IVP SCH ×3 (08:16→23:59)
--- NOTE | 2019-09-05 13:19 | PROVIDER PROGRESS NOTE ---
Assessment/Plan - Problem List (1) Pulmonary edema Qualifiers: Qualified Code(s): J81.0 - Acute pulmonary edema Assessment/Plan: She still has orthopnea, she reports. She cannot lie flat for more than about 30 min, without getting SOB. Her O2 supplemental demand is lower, she is on room air as of today. The chest x-ray done yesterday showed improved CHF. BNP has decreased. She has had minimal negative fluid balance status, therefore the iv Lasix dose was increased for yesterday and today. We will stop the IV bid Lasix after today. Continue to follow I's and O's. Start oral Lasix daily tomorrow and start Spironolactone on Friday, not daily due to Potassium retention in this pt with CKD. She is probably ready for a coronary angiogram this upcoming week. (2) Acute respiratory failure with hypoxia Assessment/Plan: We were able to wean supplemental oxygen down to room air. Continue diuretic meds and new cardiac meds. (3) Acute non-ST elevation myocardial infarction (NSTEMI) Assessment/Plan: She is on aspirin, beta-omid and statin. She is on Imdur, changed from Nitropaste. No more hemoptysis since day 1. Heparin subcutaneous at prophylactic dose was started after a negative stool returned from guaiac test 2 days ago. She was past the 48 hours to use therapeutic IV heparin drip. I did not receive any old records from Dr. Alexandra's office to indicate where she has had prior angiograms or what prior results were. Will therefore contact [facility] for potential transfer out today, for angiogram in the upcoming week. (4) Chronic systolic heart failure Assessment/Plan: LVEF is about 45% with 2 regions of wall motion abnormalities. It is now been established she had an old HI in 1977. She is not on OLEG, this was held because of her CKD. She is not yet on spironolactone, this was held because of her recent hyper kalemia. It was learned that at the hospitalization at [facility] 1 month ago, all her diuretics were stopped. Continue the beta-omid. Start qod Spironolactone. (5) Anemia Assessment/Plan: Stool was guaic neg. She is on iron replacement. Follow CBC daily. (6) CKD stage 4 due to type 2 diabetes mellitus Assessment/Plan: Is presumably from DM. Creatinine seems to have plateaued at 1.9. Follow BMP daily (7) Chronic a-fib Assessment/Plan: A repeat EKG showed atrial flutter yesterday. HR is 50's -60's on Toprol 25 mg daily. She was on Pradaxa but this was stopped because of hemoptysis on day 1. She is on aspirin currently. (8) Diabetes mellitus Assessment/Plan: Continue with carb controlled diet and sliding scale insulin (9) Hypertension Assessment/Plan: The current cardiac medications are controlling her blood pressure. They were changed from what she was on before admission, needed for the acute HI and the pulmonary edema. (10) Gout Assessment/Plan: She is on her low-dose allopurinol daily (11) Dementia Assessment/Plan: Poor memory has been w (12) Hypothyroidism Assessment/Plan: He is on her home dose of Synthroid. (13) Hemoptysis Assessment/Plan: Resolved - Current Meds Current Meds: Current Medications Generic Name Dose Route Start Last Admin Trade Name Freq PRN Reason Stop Dose Admin Allopurinol 100 mg 09/01/19 11:00 09/05/19 08:10 Zyloprim PO 100 mg DAILY ELLEN Administration Aspirin 81 mg 09/02/19 09:00 09/05/19 08:10 [facility] Edwardo Aspirin PO 81 mg DAILY ELLEN Administration Atorvastatin Calcium 40 mg 09/01/19 21:00 09/04/19 21:08 Lipitor PO 40 mg QPM ELLEN Administration Calcium Carbonate/Glycine 500 mg 09/02/19 21:45 09/02/19 22:17 Tums PO 500 mg TID PRN Administration Heartburn Ferrous Gluconate 324 mg 09/02/19 18:00 09/05/19 08:10 Fergon PO 324 mg DAILYWM ELLEN Administration Furosemide 80 mg 09/04/19 06:00 09/05/19 06:47 Lasix Inj 40 Mg Vial IVP 09/05/19 16:00 80 mg BIDDIURETIC ELLEN Administration Heparin Sodium (Porcine) 5,000 unit 09/03/19 23:45 09/05/19 08:14 SUBQ 5,000 unit BID ELLEN Administration Insulin Aspart 1 - 5 unit 09/01/19 08:00 09/05/19 11:49 Novolog SUBQ 2 unit 0800,1200,1700,2100 ELLEN Administration Protocol Insulin Glargine 8 unit 09/03/19 09:00 09/05/19 08:14 Lantus Solostar SUBQ 8 unit DAILY ELLEN Administration Isosorbide Mononitrate 30 mg 09/04/19 09:00 09/05/19 08:10 Imdur PO 30 mg DAILY ELLEN Administration Levothyroxine Sodium 100 mcg 09/04/19 09:00 09/05/19 08:10 Synthroid PO 100 mcg DAILY ELLEN Administration Metoprolol Succinate 25 mg 09/01/19 09:00 09/05/19 08:10 Toprol Xl PO 25 mg DAILY ELLEN Administration Pantoprazole Sodium 40 mg 09/01/19 07:00 09/05/19 06:47 Protonix PO 40 mg QDAC ELLEN Administration Polyethylene Glycol 17 gm 09/03/19 11:00 09/05/19 08:10 Miralax PO Not Given DAILY ELLEN Sodium Chloride 10 ml 09/01/19 03:05 09/05/19 06:48 Normal Saline Flush 0.9% IVP 10 ml PRN PRN Administration NEEDED PER PROVIDER ORDERS Sodium Chloride 10 ml 09/01/19 09:00 09/05/19 08:16 Normal Saline Flush 0.9% IVP 10 ml 0100,0900,1700 ELLEN Administration Sodium Chloride 20 ml 09/05/19 05:19 09/05/19 05:20 Normal Saline Flush 0.9% IVP 20 ml PRN PRN Administration After Blood Draw - Lab Result Fish Bone Diagrams: 09/05/19 05:10 09/05/19 05:10 - Additional Planning My Orders: My Active Orders 09/05/19 05:19 Sodium Chloride Flush 0.9% [Normal Saline Flush 0.9%] 20 ml IVP PRN PRN 09/06/19 09:00 Furosemide [Lasix] 80 mg PO DAILY Spironolactone [Aldactone] 25 mg PO MOWEFR Objective Vital Signs: Vital Signs - 24 hr 09/04/19 09/04/19 09/05/19 16:11 20:34 00:00 Temperature 36.1 C L 37.0 C 37.0 C Heart Rate [ 63 56 L 58 L Brachial] Respiratory 18 18 16 Rate Blood Pressure 151/67 H 146/51 H 140/45 H [Left Brachial artery] O2 Saturation 94 95 95 09/05/19 09/05/19 09/05/19 06:00 07:19 11:34 Temperature 36.6 C 36.8 C 36.5 C Heart Rate [ 61 51 L 50 L Brachial] Respiratory 18 16 14 Rate Blood Pressure 127/50 L 149/52 H 132/54 H [Left Brachial artery] O2 Saturation 95 92 94 Oxygen O2 Source Room air Oxygen Flow Rate 2 I&O (Last 24 Hrs): Intake and Output Totals x24h 09/03/19 09/04/19 09/05/19 23:59 23:59 23:59 Intake Total 1264 1036 1640 Output Total 1300 2024 1600 Balance -36 -989 40 General: Alert HEENT: Mucous membr. moist/pink Neck: No JVD Neuro: Alert, Other (Poor memory) Cardiovascular: No murmurs Respiratory: No respiratory distress Abdomen: Soft Extremities: No edema - Results Results: Laboratory Results WBC 9.1 x10^3/uL (4.8-10.8) 09/05/19 05:10 RBC 2.63 10^6/uL (4.20-5.40) L 09/05/19 05:10 Hgb 8.5 g/dL (12.0-16.0) L 09/05/19 05:10 Hct 26.3 % (37.0-47.0) L 09/05/19 05:10 MCV 100.0 fL (81.0-99.0) H 09/05/19 05:10 MCH 32.3 pg (27.0-31.0) H 09/05/19 05:10 MCHC 32.3 g/dL (32.0-36.0) 09/05/19 05:10 RDW 14.8 % (12.0-15.0) 09/05/19 05:10 Plt Count 238 10^3/uL (130-450) 09/05/19 05:10 MPV 11.0 fL (7.9-10.8) H 09/05/19 05:10 Neut # (Auto) 6.6 10^3/uL (1.5-6.6) 09/05/19 05:10 Lymph # (Auto) 1.3 10^3/uL (1.5-3.5) L 09/05/19 05:10 Stoddard # (Auto) 0.7 10^3/uL (0.0-1.0) 09/05/19 05:10 Eos # (Auto) 0.5 10^3/uL (0.0-0.7) 09/05/19 05:10 Baso # (Auto) 0.1 10^3/uL (0.0-0.1) 09/05/19 05:10 Absolute Nucleated RBC 0.00 x10^3/uL 09/05/19 05:10 Nucleated RBC % 0.0 /100WBC 09/05/19 05:10 PT 19.4 secs (9.9-12.6) H 09/01/19 02:00 INR 1.8 (0.8-1.2) H 09/01/19 02:00 APTT 75.1 secs (24.9-33.3) H 09/01/19 02:00 Anti-Xa Level 0.1 U/mL (-0.7) 09/01/19 14:16 Sodium 139 mmol/L (135-145) 09/05/19 05:10 Potassium 3.2 mmol/L (3.5-5.0) L 09/05/19 05:10 Chloride 104 mmol/L (101-111) 09/05/19 05:10 Carbon Dioxide 28 mmol/L (21-32) 09/05/19 05:10 Anion Gap 7.0 (6-13) 09/05/19 05:10 BUN 73 mg/dL (6-20) H 09/05/19 05:10 Creatinine 1.9 mg/dL (0.4-1.0) H 09/05/19 05:10 Estimated GFR (MDRD) 25 (>89) L 09/05/19 05:10 Glucose 133 mg/dL (70-100) H 09/05/19 05:10 Glycated Hemoglobin 6.0 % (4.6-6.2) 09/02/19 09:04 Estim Average Glucose 126 (70-100) H 09/02/19 09:04 Lactic Acid 1.2 mmol/L (0.5-2.2) 09/01/19 02:00 Uric Acid 7.4 mg/dL (2.6-7.2) H 09/01/19 09:35 Calcium 8.5 mg/dL (8.5-10.3) 09/05/19 05:10 Magnesium 2.6 mg/dL (1.7-2.8) 09/01/19 02:00 Total Bilirubin 0.5 mg/dL (0.2-1.0) 09/01/19 02:00 AST 21 IU/L (10-42) 09/01/19 02:00 ALT 16 IU/L (10-60) 09/01/19 02:00 Alkaline Phosphatase 103 IU/L (42-121) 09/01/19 02:00 Total Creatine Kinase 66 IU/L (22-269) 09/01/19 02:00 Troponin I High Sens 510.6 ng/L (2.3-14.8) H* 09/04/19 05:00 B-Natriuretic Peptide 3731 pg/mL (5-100) H 09/03/19 04:35 Total Protein 7.5 g/dL (6.7-8.2) 09/01/19 02:00 Albumin 3.9 g/dL (3.2-5.5) 09/01/19 02:00 Globulin 3.6 g/dL (2.1-4.2) 09/01/19 02:00 Albumin/Globulin Ratio 1.1 (1.0-2.2) 09/01/19 02:00 Triglycerides 65 mg/dL (-149) 09/01/19 05:40 Cholesterol 92 mg/dL (-199) 09/01/19 05:40 LDL Cholesterol, Calc 36 mg/dL (-129) 09/01/19 05:40 VLDL Cholesterol 13 mg/dL 09/01/19 05:40 HDL Cholesterol 43 mg/dL (60-) L 09/01/19 05:40 LDL/HDL Ratio 0.8 (<4.4) 09/01/19 05:40 Cholesterol/HDL Ratio 2.1 (<4.4) 09/01/19 05:40 Lipase 70 U/L (22-51) H 09/01/19 02:00 Vitamin B12 2942 pg/mL (180-914) H 09/03/19 04:35 Folate 19.37 ng/mL (5.90 - >24.8) 09/03/19 04:35 Urine Color YELLOW 09/01/19 07:54 Urine Clarity CLEAR (CLEAR) 09/01/19 07:54 Urine pH 5.5 PH (5.0-7.5) 09/01/19 07:54 Ur Specific Hoskins 1.015 (1.002-1.030) 09/01/19 07:54 Urine Protein 30 mg/dL (NEGATIVE) H 09/01/19 07:54 Urine Glucose (UA) NEGATIVE mg/dL (NEGATIVE) 09/01/19 07:54 Urine Ketones NEGATIVE mg/dL (NEGATIVE) 09/01/19 07:54 Urine Occult Blood NEGATIVE (NEGATIVE) 09/01/19 07:54 Urine Nitrite POSITIVE (NEGATIVE) H 09/01/19 07:54 Urine Bilirubin NEGATIVE (NEGATIVE) 09/01/19 07:54 Urine Urobilinogen 0.2 (NORMAL) E.U./dL (NORMAL) 09/01/19 07:54 Ur Leukocyte Esterase NEGATIVE (NEGATIVE) 09/01/19 07:54 Urine RBC None Seen /HPF (0-5) 09/01/19 07:54 Urine WBC 6-10 /HPF (0-5) H 09/01/19 07:54 Urine WBC Clumps PRESENT 09/01/19 07:54 Ur Squamous Epith Cells FEW Squamous (<= Few) 09/01/19 07:54 Urine Bacteria Few /HPF (None Seen) 09/01/19 07:54 Urine Casts 0-2 Hyaline Casts /LPF 09/01/19 07:54 Ur Microscopic Review INDICATED 09/01/19 07:54 Urine Culture Comments INDICATED 09/01/19 07:54 Coronavirus (PCR) NEGATIVE 09/01/19 02:55 Influenza A (Rapid) Negative (Negative) 09/01/19 02:55 Influenza B (Rapid) Negative (Negative) 09/01/19 02:55 Blood Type A POSITIVE 09/01/19 22:20 Blood Type Recheck A POSITIVE 09/01/19 21:30 Antibody Screen NEGATIVE 09/01/19 22:20 Crossmatch IS Only See Detail 09/01/19 22:20
[2019-09-05] MEDS: ATORVASTATIN 40 MG TABLET PO SCH (20:55)
[2019-09-06] MEDS: SODIUM CHLORIDE FLUSH 0.9% 10 ML SYRINGE IVP PRN ×2 (04:43→04:44)
[2019-09-06 04:56] LABS: BASOPHILS # (AUTO) 0.1 10^3/uL (0.0-0.1); BASOPHILS % (AUTO) 0.6 %; EOSINOPHILS # (AUTO) 0.6 10^3/uL (0.0-0.7); EOSINOPHILS % (AUTO) 6.3 %; HGB - HEMOGLOBIN 8.6 g/dL (12.0-16.0); LYMPHOCYTES # (AUTO) 1.3 10^3/uL (1.5-3.5); LYMPHOCYTES % (AUTO) 14.1 %; MEAN CORPUSCULAR HEMOGLOBIN 35.4 pg (27.0-31.0); MEAN CORPUSCULAR HGB CONC 33.7 g/dL (32.0-36.0); MEAN CORPUSCULAR VOLUME 104.9 fL (81.0-99.0); MEAN PLATELET VOLUME 11.1 fL (7.9-10.8); MONOCYTES # (AUTO) 0.7 10^3/uL (0.0-1.0); MONOCYTES % (AUTO) 7.4 %; NEUTROPHILS # (AUTO) 6.4 10^3/uL (1.5-6.6); NEUTROPHILS % (AUTO) 71.3 %; PLT - PLATELET COUNT 237 10^3/uL (130-450); RED BLOOD COUNT 2.43 10^6/uL (4.20-5.40); RED CELL DISTRIBUTION WIDTH 15.6 % (12.0-15.0)
[2019-09-06 05:04] LABS: CALCIUM 8.3 mg/dL (8.5-10.3)
[2019-09-06] MEDS: PANTOPRAZOLE 40 MG TABLET PO SCH (07:34)
[2019-09-06] MEDS: INSULIN ASPART 300 UNIT/3 ML PEN SUBQ SCH ×2 (08:22→12:02)
[2019-09-06] MEDS ORDERED: FUROSEMIDE 40 MG TABLET PO SCH (09:00)
[2019-09-06] MEDS ORDERED: SPIRONOLACTONE 25 MG TABLET PO SCH (09:00)
[2019-09-06] MEDS: HEPARIN 5,000 UNIT/ML VIAL SUBQ SCH (09:14)
[2019-09-06] MEDS: polyethylene glycoL 3350 17 GM PACKET PO SCH (09:16)
[2019-09-06] MEDS: ASPIRIN CHEW 81 MG TABLET PO SCH (09:17)
[2019-09-06] MEDS: allopurinoL 100 MG TABLET PO SCH (09:17)
[2019-09-06] MEDS: METOPROLOL SUCCINATE 25 MG TABLET PO SCH (09:17)
[2019-09-06] MEDS: LEVOTHYROXINE 100 MCG TABLET PO SCH (09:17)
[2019-09-06] MEDS: ISOSORBIDE MONONITRATE ER 30 MG TABLET PO SCH (09:18)
[2019-09-06] MEDS: FERROUS GLUCONATE 324 MG TABLET PO SCH (09:18)
[2019-09-06] MEDS: INSULIN GLARGINE 300 UNIT/3 ML PEN SUBQ SCH (09:19)
--- NOTE | 2019-09-06 11:31 | Discharge Plan ---
Discharge Plan Problem Reviewed?: Yes Disposition: 02 Transfer Acute Care Hosp Condition: Stable No Smoking: If you smoke, Please STOP! Call for help.
--- NOTE | 2019-09-06 11:31 | DISCHARGE SUMMARY ---
Discharge Summary Admit Date: 09/01/19 Discharge Date: 09/06/19 Discharging Provider: Dr Candy Gonzalez Primary Care Provider: Dr Mingo Alexandra Condition at Discharge: Stable Discharge Disposition: 02 Transfer Acute Care Hosp Discharge Facility Name: [facility] History of Present Illness: From the admission H&P of Dr Jean Guajardo: Patient is an 84-year-old female with history of systolic CHF, chronic Afib on Pradaxa, diabetes mellitus on Glucophage, hypertension, chronic kidney disease stage IV, hyperlipidemia and gout who presented to the ED with complaint of worsening dyspnea. Her symptoms started 2 days ago. She described "hearing rattling" in her chest. She denied chest pain, cough or sputum, abdominal pain, nausea, vomiting, fever or chills. Normally at home she sleeps in bed flat with 1 pillow on her side or on her belly, but has had 2 days of marked orthopnea. When she presented to the ED she required 2 L of oxygen via nasal cannula due to desaturation. She had a respiratory rate as high as 28. She was found to have a BNP of 447, troponin I of 116. EKG showed afib with ventricular bigeminy and lateral ST depressions. Chest x-ray showed extensive pulmonary edema, however infection could not be ruled out. She had a white blood cell count of 12.6. At the time of my exam she appeared to be resting comfortably, on oxygen, with head of bed elevated. She had rales and 2+ lower extremity edema. She reports improvement in her respiratory status after receiving 40 mg of Lasix IV in the ED and is diuresing well. As a result of the above findings and her clinical presentation she is being admitted for further work-up and treatment. - HOSPITAL COURSE Hospital Course: (1) Pulmonary edema It was learned that at a hospitalization at [facility] 1 month ago, all her diuretics were stopped. She was started here on iv b.i.d. Lasix (at doses for CKD), NTPaste and supplemental oxygen. BNP was 447 which worsened to 3731. She had slow diuresis, so as not to worsen her CKD. She was on empiric iv antibiotics for 2 days, until blood cultures were neg and sputum culture showed oral parish. COVID testing was done and was neg. A chest x-ray was repeated and showed improved CHF. She still had orthopnea until the day prior to transfer. Her supplemental O2 was slowly weaned off to room air. She was continued on new diuretic meds and new cardiac meds. (2) Hemoptysis On her first morning of hospitalization, the RN witnessed sputum production that had bright red blood streaks. Her Pradaxa was put on hold. There were no further episodes of hemoptysis. Her CBC was monitored daily. (3) Acute respiratory failure with hypoxia She still had orthopnea until the day prior to transfer. Her supplemental O2 was slowly weaned off to room air. (4) Acute non-ST elevation myocardial infarction (NSTEMI) Her hs-troponins were 116>> 298>> 526>> 844>> peaked at 1614>> then declined 1457. The second EKG showed new deeply inverted T waves bhavin-laterally. She was started on aspirin, beta-omid, NTPaste and her statin dose was increased. NTP was changed to Imdur after 2 days. A bleed was suspected (see below) and she was not put on therapeutic iv Heparin drip for the acute ME. Heparin subcutaneous at prophylactic dose was started after a negative stool returned from guaiac test. An Echo was done; LVEF was 45% with 2 regions of wall motion abnormalities seen. She was offered a coronary angio and she and the eldest daughter agreed and she was accepted in transfer to [facility] in [place], and transferred there in stable condition. (5) Chronic systolic heart failure LVEF was 45% with 2 regions of wall motion abnormalities. It was established she had an old ME in 1977. No prior angio information was available from her PCP's office. She was put on Toprol, no OLEG because of her worsened CKD. She required iv b.i.d. Lasix then oral Lasix plus qod Spironolactone (this was dosed qod because of her recent hyperkalemia. It was learned that she was hospitalized at [facility] 1 month ago, for severe hyperkalemia). (6) Anemia We followed her CBC daily. Her admission Hgb was 7.3 which dropped despite diuresis to 6.3 the next day. For this reason, a bleed was suspected and she was not put on therapeutic iv Heparin drip for the acute ME. She received 1 U of blood transfused and Hgb improved to 9.5 then plateaued at 8.6-9.0. Her stool was tested and was guaic neg. After the episode of hemoptysis, there was no further hemoptysis and no other signs of bleeding. The B12 and Folate levels were adequate. She was put on oral iron replacement. (7) CKD stage 4 due to type 2 diabetes mellitus Her CKD is presumably from DM and HTN. Creatinine improved from 2.5 and plateaued at 1.9 with diuresis, suggesting cardio-renal syndrome. (8) Chronic a-fib A repeat EKG showed atrial flutter. Her HR was in the 50's -60's on Toprol 25 mg daily. She had been on Pradaxa at home, but this was stopped because of hemoptysis on day 1. She was put on daily aspirin and heparin only at doses for DVT prophylaxis. (9) Diabetes mellitus Her A1c was 5.8, indicating good control. Her Glucophage was stopped at admission, due to worsened creat and for expected use of imaging dye. She was on a carb controlled diet and sliding scale insulin while here. (10) Hypertension The new cardiac medications were controlling her blood pressure. They were changed from what she was on before admission, but were needed for the acute ME and the pulmonary edema. (11) Gout She was kept on her low-dose Allopurinol daily. (12) Dementia Poor memory was witnessed and the daughter confirmed poor memory. (13) Hypothyroidism She was kept on her home dose of Synthroid. - ALLERGIES Allergies/Adverse Reactions: Allergies Allergy/AdvReac Type Severity Reaction Status Date / Time No Known Drug Allergies Allergy Verified 09/01/19 02:20 - MEDICATIONS Home Medications: Ambulatory Orders Medication Instructions Recorded Confirmed Albuterol Sulfate [Albuterol 2 puffs INH Q6H PRN 09/01/19 09/01/19 Sulfate Hfa] Aspirin Chewable [St Edwardo 81 mg PO DAILY 09/01/19 09/01/19 Aspirin] Atorvastatin Calcium 40 mg PO DAILY 09/01/19 09/01/19 Clindamycin Phosphate 1 each TP BID 09/01/19 09/01/19 Colchicine 0.6 mg PO BID PRN 09/01/19 09/01/19 Dabigatran Etexilate Mesylate 75 mg PO BID 09/01/19 09/01/19 [Pradaxa] Famotidine [Acid Controller] 20 mg PO BID 09/01/19 09/01/19 Insulin Glargine,Hum.rec.anlog 15 unit SUBQ DAILY 09/01/19 09/01/19 [Basaglar Lilianikpen U-100] Levothyroxine [Synthroid] 100 mcg PO DAILY 09/01/19 09/01/19 Lisinopril [Zestril] 20 mg PO BID 09/01/19 09/01/19 NIFEdipine [Nifedipine ER] 60 mg PO DAILY 09/01/19 09/01/19 Torsemide 20 mg PO DAILY 09/01/19 09/01/19 allopurinoL [Allopurinol] 100 mg PO DAILY 09/01/19 09/01/19 amLODIPine [Norvasc] 5 mg PO DAILY 09/01/19 09/01/19 metFORMIN [Glucophage] 500 mg PO BID 09/01/19 09/01/19 - PHYSICAL EXAM AT DISCHARGE General Appearance: positive: No acute distress, Alert Eyes Bilateral: positive: Normal inspection, PERRL ENT: positive: ENT inspection nml, No signs of dehydration Neck: positive: Nml inspection, No JVD Respiratory: positive: No respiratory distress, Breath sounds nml Cardiovascular: positive: No murmur, Bradycardia Abdomen: positive: Non-tender, No distention Skin: positive: Warm, Dry, Pallor Extremities: positive: Non-tender, No pedal edema Neurologic/Psychiatric: positive: Oriented x3, Other (Poor memory.) - LABS Result Diagrams: 09/06/19 04:44 09/06/19 04:44 - DIAGNOSTIC IMAGING Diagnostic Imaging Results: Final report reviewed - FOLLOW UP Follow Up: This will be determined after her stay at [facility]. - TIME SPENT Time Spent in Discharge (Minutes): 60
[2019-09-06 13:37] VITALS: BP 150/45
== END 2019-09-06 13:41 | disposition short-term general hospital (02) | DRG 280 ==
LOC: EDUNIT# → ED 01:48 → MS2 03:05
PROVIDERS: ADMIT Internal Medicine; ATTEND Internal Medicine
PROC: 30233N1 Transfusion of Nonautologous Red Blood Cells into Peripheral Vein, Percutaneous Approach (ICD-10-PCS; principal; 2019-09-01)
PROC: 05HY33Z Insertion of Infusion Device into Upper Vein, Percutaneous Approach (ICD-10-PCS; 2019-09-01)
DX: J81.0 Acute pulmonary edema (principal); I13.0 Hypertensive heart and chronic kidney disease with heart failure and stage 1 through stage 4 chronic kidney disease, or unspecified chronic kidney disease; J96.01 Acute respiratory failure with hypoxia; I21.4 Non-ST elevation (NSTEMI) myocardial infarction; I50.22 Chronic systolic (congestive) heart failure; N18.4 Chronic kidney disease, stage 4 (severe); R04.2 Hemoptysis; N17.9 Acute kidney failure, unspecified; I48.20 Chronic atrial fibrillation, unspecified; E11.22 Type 2 diabetes mellitus with diabetic chronic kidney disease; Z79.84 Long term (current) use of oral hypoglycemic drugs; Z79.01 Long term (current) use of anticoagulants; D63.1 Anemia in chronic kidney disease; M10.9 Gout, unspecified; F03.90 Unspecified dementia, unspecified severity, without behavioral disturbance, psychotic disturbance, mood disturbance, and anxiety; E03.9 Hypothyroidism, unspecified; E78.5 Hyperlipidemia, unspecified; Z86.73 Personal history of transient ischemic attack (TIA), and cerebral infarction without residual deficits; I25.2 Old myocardial infarction
CPT/HCPCS: 36415; 71045; 80048; 80053; 80061; 81001; 82272; 82550; 82607; 82746; 83036; 83605; 83690; 83735; 83880; 84484; 84550; 85025; 85027; 85520; 85610; 85730; 86850; 86900; 86901; 86920; 87040; 87070; 87086; 87205; 87275; 87276; 93005; 93306; 97161; 97166; 97530; 99285; 99291; A9270; C1751; J1815; P9016; U0004; 81003; 83721